=== PATIENT | male | born 1955 | race Caucasian/White ===

== ENCOUNTER 2017-03-09 07:50 | Inpatient (IN) | payer OTHER ==
[~2017-03-09] VITALS: Ht 170.2 cm; Wt 71.0 kg
[2017-03-09 08:15] VITALS: BP 174/78
[2017-03-09] MEDS ORDERED: ALLO300T PO (09:59)
[2017-03-09] MEDS ORDERED: FENO145T2 PO (09:59)
[2017-03-09] MEDS ORDERED: TAMS0.4C97 PO (09:59)
[2017-03-09] MEDS ORDERED: DAPS25TA PO (09:59)
[2017-03-09] MEDS ORDERED: AMLO10TA4 PO (09:59)
[2017-03-09 10:37] VITALS: BP 137/79
[2017-03-09 11:35] LABS: CKMB MASS 0.7 ng/mL (0.0-3.6)
--- NOTE | 2017-03-09 13:05 | HP ---
ADMIT DATE: 03/09/2017 CHIEF COMPLAINT: Chest pain. HISTORY OF PRESENT ILLNESS: The patient is a pleasant middle-aged white male who presented with chest pain. He rates it 12/02. He tried taking some iyga-iic-bvvthep meds, but did not work. It radiates to the left chest wall and into the jaw. He had some slight nausea. I discussed the case with the ER physician. He was transferred here from another facility. The patient is now being transferred from another facility. PAST MEDICAL HISTORY: Hyperlipidemia, hypertension, inguinal hernia repair twice, gout and BPH. ALLERGIES: None. FAMILY HISTORY: Coronary artery disease in both parents. SOCIAL HISTORY: Does not drink, smoke or take drugs. 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 MEDICATIONS: Reviewed, please refer to the MRAD. REVIEW OF SYSTEMS: GENERAL: No history of weight change, weakness or fevers. SKIN: No bruising, hair changes or rashes. EYES: No blurred, double or loss of vision. NOSE AND THROAT: No history of nosebleeds, hoarseness or sore throat. HEART: He complains of chest pain. LUNGS: Denies cough, hemoptysis, wheezing or shortness of breath. GASTROINTESTINAL: Denies changes in appetite, nausea, vomiting, diarrhea or constipation. GENITOURINARY: No history of frequency, urgency, hesitancy or nocturia. NEUROLOGIC: Denies history of numbness, tingling, tremor or weakness. PSYCHIATRIC: No history of panic, anxiety or depression. ENDOCRINE: No history of heat or cold intolerance, polyuria or polydipsia. EXTREMITIES: Denies muscle weakness, joint pain, pain on walking or stiffness. PHYSICAL EXAMINATION: VITAL SIGNS: Temperature afebrile, pulse 92, respirations 18, blood pressure 144/90. GENERAL: He is alert, cooperative. His friend is present. HEART: Normal S1, S2. LUNGS: Clear. ABDOMEN: Soft. EXTREMITIES: No edema. SKIN: No rashes. PSYCHIATRIC: Stable. VASCULAR: Good capillary refill. ENDOCRINE: No thyromegaly. LYMPHATICS: No cervical nodes. HEMATOPOIETIC: No bruising. LABORATORY DATA: CPK is 79. Other labs are pending. ASSESSMENT AND PLAN: Chest pain, rule out coronary disease. The patient is being admitted. We will check serial enzymes, serial EKGs. Consult Cardiology, daily aspirin. Continue home medicines. NIAL Yocasta GA DO DR: Candida JOB#: [id number] / [id number]
[2017-03-09 13:43] LABS: CHOLESTEROL/HDL RATIO 3.5
--- NOTE | 2017-03-09 14:10 | PDOC2 ---
CONSULT Date of Consult Date of Consult DATE: 03/09/17 TIME: 14:06 Reason for Consult Reason for Consult: chest pain Referring Physician Referring Physician: Dr. King Identification/Chief Complaint Chief Complaint Chest pain. Problems: Source Source: Patient History of Present Illness Reason for Visit: The patient is a pleasant 61-year-old male who developed chest discomfort earlier today. He was seen at his local emergency room and then transferred to [place]. At the present time he is resting comfortably in bed. We do not yet have available records. He denies any history of coronary artery disease but does report a history of hypertension and hyperlipidemia. He also reports a family history of coronary disease. Past Medical History Cardiovascular: HTN, Hyperlipidemia Past Surgical History Past Surgical History: Other (inguinal hernia repair) Family History Family History: Coronary Artery Disease Social History ALCOHOL: social Current Medications Current Medications Current Medications Allopurinol (Zyloprim) 300 mg DAILY PO ; Start 03/09/17 at 13:00 Amlodipine Besylate (Norvasc) 10 mg DAILY PO ; Start 03/09/17 at 13:00 Tamsulosin HCl (Flomax) 0.4 mg DAILY PO ; Start 03/09/17 at 13:00 Fenofibrate (Lofibra) 134 mg DAILY PO ; Start 03/09/17 at 13:00 Sodium Chloride 1,000 ml @ 75 mls/hr [id number] IV ; Start 03/09/17 at 12:15 Active Scripts Active Reported Fenofibrate (Fenofibrate Nanocrystallized) 145 Mg Tablet 145 Tab PO DAILY Norvasc (Amlodipine Besylate) 10 Mg Tablet 10 Mg PO DAILY Allopurinol 300 Mg Tablet 1 Tab PO DAILY Dapsone 25 Mg Tablet 25 Mg PO Flomax (Tamsulosin Hcl) 0.4 Mg Cap.er.24h 0.4 Mg PO DAILY Allergies Allergies: Coded Allergies: [place]-O[place]-Fab Reductase Inhibitor (Verified Allergy, Severe, Swelling, 03/09/17) ROS Cardiovascular: yes Chest Pain Physical Exam General: No acute distress HEENT: Atraumatic Lungs: Clear to auscultation Heart: Regular rate Abdomen: Normal bowel sounds Vitals VITALS Vital Signs Date Time Temp Pulse Resp B/P (MAP) Pulse Ox O2 Delivery O2 Flow Rate FiO2 03/09/17 10:37 97.5 57 18 137/79 (98) 93 Room Air 97.5 Labs Labs Laboratory Tests Test 03/09/17 10:00 Creatine Kinase 79 U/L (39-308) Creatine Kinase MB (Mass) 0.7 ng/mL (0.0-3.6) Creatine Kinase MB Relative Index 0.9 % (0-4) Troponin I Quantitative < 0.017 ng/mL (0.000-0.055) Triglycerides Level 104 mg/dL (0-150) Cholesterol Level 189 mg/dL (0-200) LDL Cholesterol, Calculated 114 mg/dL (0-100) VLDL Cholesterol, Calculated 21 mg/dL (0-40) Non-HDL Cholesterol Calculated 135 mg/dL (0-129) HDL Cholesterol 54 mg/dL (40-60) Cholesterol/HDL Ratio 3.5 Laboratory Tests Test 03/09/17 10:00 Creatine Kinase 79 U/L (39-308) Creatine Kinase MB (Mass) 0.7 ng/mL (0.0-3.6) Creatine Kinase MB Relative Index 0.9 % (0-4) Troponin I Quantitative < 0.017 ng/mL (0.000-0.055) Triglycerides Level 104 mg/dL (0-150) Cholesterol Level 189 mg/dL (0-200) LDL Cholesterol, Calculated 114 mg/dL (0-100) VLDL Cholesterol, Calculated 21 mg/dL (0-40) Non-HDL Cholesterol Calculated 135 mg/dL (0-129) HDL Cholesterol 54 mg/dL (40-60) Cholesterol/HDL Ratio 3.5 Assessment/Plan Assessment/Plan 1. Chest pain. Pain largely resolved. Reportedly no acute EKG changes. We do not have an EKG here yet. Initial troponin is normal. Will continue baseline medications including aspirin. We'll rule out for myocardial infarction. Based on clinical course will proceed with treadmill stress testing tomorrow versus cardiac catheterization. 2. Hypertension. Patient's blood pressures under reasonable control. Continue medical treatment. 3. Hyperlipidemia. Patient reports severe leg pain with statins. We'll review lab testing and consider alternative treatments. Thank you for allowing us to participate in the care of your patient. ZENY RAMOS MD Mar 09, 2017 14:10
[2017-03-09 14:35] VITALS: BP 121/73
--- NOTE | 2017-03-09 16:54 | EKG ---
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
[2017-03-09] MEDS: amLODIPine BESYLATE 10 MG TABLET PO SCH (17:46)
[2017-03-09] MEDS: TAMSULOSIN 0.4 MG CAP.ER.24H. PO SCH (17:46)
[2017-03-09] MEDS: ALLOPURINOL 300 MG TABLET. PO SCH (17:46)
[2017-03-09] MEDS: ASPIRIN ENTERIC COATED 325 MG TABLET.DR. PO SCH (17:46)
[2017-03-09] MEDS: FENOFIBRATE,MICRONIZED 134 MG CAPSULE PO SCH (17:46)
[2017-03-09] MEDS: IV NORMAL SALINE 1000ML BAG 1,000 ML IV SCH (17:47)
[2017-03-09 19:25] VITALS: BP 131/78
[2017-03-09 23:00] VITALS: BP 119/75
[2017-03-10] MEDS: IV NORMAL SALINE 1000ML BAG 1,000 ML IV SCH (01:35)
[2017-03-10 03:20] VITALS: BP 108/66
[2017-03-10 05:00] LABS: BASO % 1 % (0-3); EOS % 2 % (0-3); HEMATOCRIT 41.4 % (39.0-53.0); HEMOGLOBIN 14.2 g/dL (13.0-17.5); LYMPH # 0.9 x10^3/uL (1.0-4.8); LYMPH % 16 % (24-48); MEAN CORPUSCULAR HEMOGLOBIN 32 pg (25-35); MEAN CORPUSCULAR HGB CONC 34 g/dL (31-37); MEAN CORPUSCULAR VOLUME 92 fL (79-100); MONO % 9 % (0-9); NEUT % 72 % (31-73); PLATELET COUNT 240 x10^3/uL (140-400); RED CELL DISTRIBUTION WIDTH 13.6 % (11.5-14.5); WHITE BLOOD COUNT 5.5 x10^3/uL (4.0-11.0)
[2017-03-10 05:11] LABS: CALCIUM 8.5 mg/dL (8.5-10.1); GFR 76.5; POTASSIUM 3.6 mmol/L (3.5-5.1)
[2017-03-10 07:00] VITALS: BP 118/70
[2017-03-10 11:00] VITALS: BP 118/72
--- NOTE | 2017-03-10 12:39 | PDOC ---
PROGRESS NOTES Chief Complaint Chief Complaint Chest pain History of Present Illness History of Present Illness Pt was seen at bedside accompanied by friend. States he is feeling much better than the previous few days, and welcomes the idea of discharge as soon as possible. Denies all constitutional symptoms and denies CP at present. Appears well and in NAD. Vitals Vitals Vital Signs Date Time Temp Pulse Resp B/P (MAP) Pulse Ox O2 Delivery O2 Flow Rate FiO2 03/10/17 11:00 98.4 63 18 118/72 (87) 94 Room Air 98.4 03/09/17 19:25 Physical Exam General: Alert, Oriented X3, Cooperative, No acute distress Heart: Regular rate Lungs: Clear Abdomen: Normal bowel sounds Extremities: No edema Skin: No significant lesion Labs LABS Laboratory Tests Test 03/09/17 18:40 03/10/17 03:15 Troponin I Quantitative < 0.017 ng/mL (0.000-0.055) White Blood Count 5.5 x10^3/uL (4.0-11.0) Red Blood Count 4.50 x10^6/uL (4.30-5.70) Hemoglobin 14.2 g/dL (13.0-17.5) Hematocrit 41.4 % (39.0-53.0) Mean Corpuscular Volume 92 fL (79-100) Mean Corpuscular Hemoglobin 32 pg (25-35) Mean Corpuscular Hemoglobin Concent 34 g/dL (31-37) Red Cell Distribution Width 13.6 % (11.5-14.5) Platelet Count 240 x10^3/uL (140-400) Neutrophils (%) (Auto) 72 % (31-73) Lymphocytes (%) (Auto) 16 % (24-48) Monocytes (%) (Auto) 9 % (0-9) Eosinophils (%) (Auto) 2 % (0-3) Basophils (%) (Auto) 1 % (0-3) Neutrophils # (Auto) 3.9 x10^3uL (1.8-7.7) Lymphocytes # (Auto) 0.9 x10^3/uL (1.0-4.8) Monocytes # (Auto) 0.5 x10^3/uL (0.0-1.1) Eosinophils # (Auto) 0.1 x10^3/uL (0.0-0.7) Basophils # (Auto) 0.0 x10^3/uL (0.0-0.2) Sodium Level 141 mmol/L (136-145) Potassium Level 3.6 mmol/L (3.5-5.1) Chloride Level 107 mmol/L (98-107) Carbon Dioxide Level 24 mmol/L (21-32) Anion Gap 10 (6-14) Blood Urea Nitrogen 19 mg/dL (8-26) Creatinine 1.0 mg/dL (0.7-1.3) Estimated GFR (Cockcroft-Gault) 76.5 Glucose Level 97 mg/dL (70-99) Calcium Level 8.5 mg/dL (8.5-10.1) Review of Systems Review of Systems Patient denies CP. Denies SOB, cough, or wheezing. Denies abd. pain or change in bowel fxn. Assessment and Plan Assessmemt and Plan Chest pain Plan: Serial cardiac enzymes Serial EKG's Cardiac monitoring MPI (today) Continue home medications Problems: Comment Review of Relevant I have reviewed the following items biju (where applicable) has been applied. Labs Laboratory Tests Test 03/09/17 10:00 03/09/17 18:40 03/10/17 03:15 Creatine Kinase 79 U/L (39-308) Creatine Kinase MB (Mass) 0.7 ng/mL (0.0-3.6) Creatine Kinase MB Relative Index 0.9 % (0-4) Troponin I Quantitative < 0.017 ng/mL (0.000-0.055) < 0.017 ng/mL (0.000-0.055) Triglycerides Level 104 mg/dL (0-150) Cholesterol Level 189 mg/dL (0-200) LDL Cholesterol, Calculated 114 mg/dL (0-100) VLDL Cholesterol, Calculated 21 mg/dL (0-40) Non-HDL Cholesterol Calculated 135 mg/dL (0-129) HDL Cholesterol 54 mg/dL (40-60) Cholesterol/HDL Ratio 3.5 White Blood Count 5.5 x10^3/uL (4.0-11.0) Red Blood Count 4.50 x10^6/uL (4.30-5.70) Hemoglobin 14.2 g/dL (13.0-17.5) Hematocrit 41.4 % (39.0-53.0) Mean Corpuscular Volume 92 fL (79-100) Mean Corpuscular Hemoglobin 32 pg (25-35) Mean Corpuscular Hemoglobin Concent 34 g/dL (31-37) Red Cell Distribution Width 13.6 % (11.5-14.5) Platelet Count 240 x10^3/uL (140-400) Neutrophils (%) (Auto) 72 % (31-73) Lymphocytes (%) (Auto) 16 % (24-48) Monocytes (%) (Auto) 9 % (0-9) Eosinophils (%) (Auto) 2 % (0-3) Basophils (%) (Auto) 1 % (0-3) Neutrophils # (Auto) 3.9 x10^3uL (1.8-7.7) Lymphocytes # (Auto) 0.9 x10^3/uL (1.0-4.8) Monocytes # (Auto) 0.5 x10^3/uL (0.0-1.1) Eosinophils # (Auto) 0.1 x10^3/uL (0.0-0.7) Basophils # (Auto) 0.0 x10^3/uL (0.0-0.2) Sodium Level 141 mmol/L (136-145) Potassium Level 3.6 mmol/L (3.5-5.1) Chloride Level 107 mmol/L (98-107) Carbon Dioxide Level 24 mmol/L (21-32) Anion Gap 10 (6-14) Blood Urea Nitrogen 19 mg/dL (8-26) Creatinine 1.0 mg/dL (0.7-1.3) Estimated GFR (Cockcroft-Gault) 76.5 Glucose Level 97 mg/dL (70-99) Calcium Level 8.5 mg/dL (8.5-10.1) Laboratory Tests Test 03/09/17 18:40 03/10/17 03:15 Troponin I Quantitative < 0.017 ng/mL (0.000-0.055) White Blood Count 5.5 x10^3/uL (4.0-11.0) Red Blood Count 4.50 x10^6/uL (4.30-5.70) Hemoglobin 14.2 g/dL (13.0-17.5) Hematocrit 41.4 % (39.0-53.0) Mean Corpuscular Volume 92 fL (79-100) Mean Corpuscular Hemoglobin 32 pg (25-35) Mean Corpuscular Hemoglobin Concent 34 g/dL (31-37) Red Cell Distribution Width 13.6 % (11.5-14.5) Platelet Count 240 x10^3/uL (140-400) Neutrophils (%) (Auto) 72 % (31-73) Lymphocytes (%) (Auto) 16 % (24-48) Monocytes (%) (Auto) 9 % (0-9) Eosinophils (%) (Auto) 2 % (0-3) Basophils (%) (Auto) 1 % (0-3) Neutrophils # (Auto) 3.9 x10^3uL (1.8-7.7) Lymphocytes # (Auto) 0.9 x10^3/uL (1.0-4.8) Monocytes # (Auto) 0.5 x10^3/uL (0.0-1.1) Eosinophils # (Auto) 0.1 x10^3/uL (0.0-0.7) Basophils # (Auto) 0.0 x10^3/uL (0.0-0.2) Sodium Level 141 mmol/L (136-145) Potassium Level 3.6 mmol/L (3.5-5.1) Chloride Level 107 mmol/L (98-107) Carbon Dioxide Level 24 mmol/L (21-32) Anion Gap 10 (6-14) Blood Urea Nitrogen 19 mg/dL (8-26) Creatinine 1.0 mg/dL (0.7-1.3) Estimated GFR (Cockcroft-Gault) 76.5 Glucose Level 97 mg/dL (70-99) Calcium Level 8.5 mg/dL (8.5-10.1) Medications Current Medications Allopurinol (Zyloprim) 300 mg DAILY PO Last administered on 03/09/17 17:46; Start 03/09/17 at 13:00 Amlodipine Besylate (Norvasc) 10 mg DAILY PO Last administered on 03/09/17 17 :46; Start 03/09/17 at 13:00 Tamsulosin HCl (Flomax) 0.4 mg DAILY PO Last administered on 03/09/17 17:46; Start 03/09/17 at 13:00 Fenofibrate (Lofibra) 134 mg DAILY PO Last administered on 03/09/17 17:46; Start 03/09/17 at 13:00 Sodium Chloride 1,000 ml @ 75 mls/hr [id number] IV Last administered on 17:47; Start 03/09/17 at 12:15 Aspirin (Ecotrin) 325 mg [id number] PO Last administered on 03/09/17 17:46; Start 03/09/17 at 14:15 Active Scripts Active Reported Fenofibrate (Fenofibrate Nanocrystallized) 145 Mg Tablet 145 Tab PO DAILY Norvasc (Amlodipine Besylate) 10 Mg Tablet 10 Mg PO DAILY Allopurinol 300 Mg Tablet 1 Tab PO DAILY Dapsone 25 Mg Tablet 25 Mg PO Flomax (Tamsulosin Hcl) 0.4 Mg Cap.er.24h 0.4 Mg PO DAILY Vitals/I & O Vital Sign - Last 24 Hours 03/09/17 03/09/17 03/09/17 03/09/17 14:35 17:46 19:25 20:20 Temp 97.8 97.6 97.8 97.6 Pulse 61 67 73 Resp 18 20 B/P (MAP) 121/73 (89) 131/65 131/78 (95) Pulse Ox 99 93 O2 Delivery Room Air Room Air Room Air O2 Flow Rate 03/09/17 03/10/17 03/10/17 03/10/17 23:00 03:20 07:00 08:00 Temp 98.0 97.7 97.9 98.0 97.7 97.9 Pulse 59 60 61 Resp 18 18 18 B/P (MAP) 119/75 (90) 108/66 (80) 118/70 (86) Pulse Ox 94 94 94 O2 Delivery Room Air Room Air Room Air Room Air 03/10/17 03/10/17 03/10/17 08:42 08:42 11:00 Temp 98.4 98.4 Pulse 63 Resp 18 B/P (MAP) 118/72 (87) Pulse Ox 94 O2 Delivery Room Air Room Air Room Air Intake and Output 03/10/17 03/10/17 03/11/17 15:00 23:00 07:00 Intake Total 0 ml Balance 0 ml CASTLE,NIAL K III DO Mar 10, 2017 12:38
[2017-03-10] MEDS: ALLOPURINOL 300 MG TABLET. PO SCH (13:26)
[2017-03-10] MEDS: amLODIPine BESYLATE 10 MG TABLET PO SCH (13:26)
[2017-03-10] MEDS: ASPIRIN ENTERIC COATED 325 MG TABLET.DR. PO SCH (13:27)
[2017-03-10] MEDS: TAMSULOSIN 0.4 MG CAP.ER.24H. PO SCH (13:27)
[2017-03-10] MEDS: FENOFIBRATE,MICRONIZED 134 MG CAPSULE PO SCH (13:27)
--- NOTE | 2017-03-10 13:49 | PDOC ---
CARDIO Progress Notes Date and Time Date of Service 03/10/2017 Time of Evaluation 1340 Subjective Subjective: No Chest Pain, No shortness of breath, No Palpitations Vitals Vitals Vital Signs Date Time Temp Pulse Resp B/P (MAP) Pulse Ox O2 Delivery O2 Flow Rate FiO2 03/10/17 13:26 90 112/61 03/10/17 11:00 98.4 18 94 Room Air 98.4 03/09/17 19:25 Weight Weight [ ] Input and Output Intake and Output Intake and Output 03/11/17 07:00 Intake Total 0 ml Balance 0 ml Intake Oral 0 ml Laboratory Labs Laboratory Tests Test 03/09/17 18:40 03/10/17 03:15 Troponin I Quantitative < 0.017 ng/mL (0.000-0.055) White Blood Count 5.5 x10^3/uL (4.0-11.0) Red Blood Count 4.50 x10^6/uL (4.30-5.70) Hemoglobin 14.2 g/dL (13.0-17.5) Hematocrit 41.4 % (39.0-53.0) Mean Corpuscular Volume 92 fL (79-100) Mean Corpuscular Hemoglobin 32 pg (25-35) Mean Corpuscular Hemoglobin Concent 34 g/dL (31-37) Red Cell Distribution Width 13.6 % (11.5-14.5) Platelet Count 240 x10^3/uL (140-400) Neutrophils (%) (Auto) 72 % (31-73) Lymphocytes (%) (Auto) 16 % (24-48) Monocytes (%) (Auto) 9 % (0-9) Eosinophils (%) (Auto) 2 % (0-3) Basophils (%) (Auto) 1 % (0-3) Neutrophils # (Auto) 3.9 x10^3uL (1.8-7.7) Lymphocytes # (Auto) 0.9 x10^3/uL (1.0-4.8) Monocytes # (Auto) 0.5 x10^3/uL (0.0-1.1) Eosinophils # (Auto) 0.1 x10^3/uL (0.0-0.7) Basophils # (Auto) 0.0 x10^3/uL (0.0-0.2) Sodium Level 141 mmol/L (136-145) Potassium Level 3.6 mmol/L (3.5-5.1) Chloride Level 107 mmol/L (98-107) Carbon Dioxide Level 24 mmol/L (21-32) Anion Gap 10 (6-14) Blood Urea Nitrogen 19 mg/dL (8-26) Creatinine 1.0 mg/dL (0.7-1.3) Estimated GFR (Cockcroft-Gault) 76.5 Glucose Level 97 mg/dL (70-99) Calcium Level 8.5 mg/dL (8.5-10.1) Physical Exam HEENT: Neck Supple W Full Motion Chest: Symmetric LUNGS: Clear to Auscultation Heart: S1S2, RRR (SR) Abdomen: Soft N/T Extremities: No Edema, No Calf Tenderness Neurology: alert, oriented, follow commands Assessment Assessment 1. Chest pain: no further recurrence 2. HTN; controlled 3. HLP; allergic to statin, on fenofibrate 4. Asymptomatic SB: mainly during sleep, vagal induced by sleep. . Recommendations 1. May DC to home if treadmill MPI is unremarkable, 2. Continue with secondary prevention BLANKA CHONG BONDING SUPERVISOR Mar 10, 2017 13:49
--- NOTE | 2017-03-10 15:22 | RAD ---
APPROVED REPORT Test Type: Exercise Stress Nurse/Tech: Hilaria Edwards R.N. Test Indications: Chest pain. Cardiac History: HTN Medications: SEE EMR Medical History: SEE EMR Resting ECG: SR with T abnormalities in anterolateral leads Resting Heart Rate: 67 bpm Resting Blood Pressure: 132/75mmHg Pretest Chest Pain: None Nurse/Tech Notes S1S2, lungs CTA, denied chest pain or SOA. Denied dizziness. Consent: The procedure was explained to the patient in lay terms. Informed consent was witnessed. Franklin eout was entered into [employer]. History and Stress Test performed by Hilaria Edwards R.N. Stress Symptoms Slightly SOA. POST EXERCISE Reason for Termination: Reached target heart rate Target HR: 136 Max HR: 145 bpm 106% of Maximum Predicted HR: 161 bpm Exercise duration: 8:35 min:sec, Stage Exercise capacity: 10.0METs Max Blood Pressure: 182/48mmHg Blood Pressure response to exercise: Normal blood pressure response during stress. Heart Rate response to exercise: Normal Chest Pain: No. Arrhythmia: No. ST Change: No. INTERPRETATION Stress EKG Conclusion: Baseline EKG showed sinus rhythm with inferolateral T wave inversions. No isc hemic changes at peak stress. No arrhythmias. Imaging Protocol IMAGE PROTOCOL: Rest Tc-99m/stress Tc-99m 1 day Rest: Stress: Viability: Radiopharm.Tc99m [id number] Sestamibi Efcm74uFy 32mCi Duration 15min. 12min. Img Date 03/10/2017 03/10/2017 Inj-Img Vmnp48owb. 60min. Rest Admin Site:IV - Left AntecubitalAdministrator:Jorge L Hicks RT (R)(N) Stress Admin Site: IV - Left AntecubitalAdministrator: Serina Archer RT (R)(N) STRESS DATA End Diast. Vol.54.0mlAv. Heart Rate73.0bpm End Syst. Vol.9.0mlCO Index BSA0.0L/min Myocardial Uhxu943.0gEject. Zsammlyy65.0% Stress Rates Pk. Fill Rate2.80EDV/secLVtime Pk. Fill 194.04msec Pk. Empty Rate5.44ESV/secLVtime Pk. Duvhx158.38msec 1/3 Pk. Fill1.34EDV/sec Stress Scores Regional WT0.00Summed WT1.00 Regional WM0.00Summed WM3.00 Study quality was good. Left Ventricular size was Normal at Rest and Stress. Lung uptake was Normal. Left Ventricular ejection fraction is 83%. The rest and stress images show normal perfusion, normal contraction and thickening. LV Perf. Quant 17 Seg. SSS1.00 17 Seg. SRS1.00 17 Seg. SDS0.00 Stress Defect Extent (% LAD)0.00Rest Defect Extent (% LAD)0.00Rev. Defect Extent (% LAD)0.00 Stress Defect Extent (% LCX) 10.00Rest Defect Extent (% LCX)17.50Rev. Defect Extent (% LCX)0.00 Stress Defect Extent (% RCA)0.00Rest Defect Extent (% RCA)0.00Rev. Defect Extent (% RCA)0.00 Stress Defect Extent (% BALA)1.70Rest Defect Extent (% BALA)3.00Rev. Defect Extent (% BALA)0.00 Conclusion 1. Treadmill exercise cardioisotope stress test did not show any evidence of ischemia or infarct. 2. Normal left ventricular systolic function with ejection fraction calculated at 83%. 3. Patient had excellent acitivity tolerance. Low risk for cardiac events.
[2017-03-10 15:50] VITALS: BP 104/64
== END 2017-03-10 16:20 | disposition home or self-care (01) | DRG 313 ==
LOC: 4 NORTH 07:50 → 2 NORTH 08:25
PROVIDERS: ADMIT Internal Medicine; ATTEND Internal Medicine
DX: R07.9 Chest pain, unspecified (principal); E78.5 Hyperlipidemia, unspecified; I10 Essential (primary) hypertension; M10.9 Gout, unspecified; N40.0 Benign prostatic hyperplasia without lower urinary tract symptoms; Z82.49 Family history of ischemic heart disease and other diseases of the circulatory system; Z88.8 Allergy status to other drugs, medicaments and biological substances; R00.1 Bradycardia, unspecified
CPT/HCPCS: 36415; 78452; 80048; 80061; 82553; 84484; 85025; 93005; 93017; 96374; 96376; A9500; J7030

== ENCOUNTER 2019-08-28 11:48 | Inpatient (IN) | payer BC, OTHER ==
[~2019-08-28] VITALS: Ht 170.2 cm; Wt 69.9 kg
[~2019-08-28 11:48] MED LIST: ALLO300T PO; AMLO10TA4 PO; DAPS25TA PO; FENO145T3 PO; TAMS0.4C97 PO
[2019-08-28 12:14] LABS: BASO % 1 % (0-3); EOS # 0.1 x10^3/uL (0.0-0.7); EOS % 1 % (0-3); HEMATOCRIT 44.2 % (39.0-53.0); HEMOGLOBIN 15.2 g/dL (13.0-17.5); LYMPH # 0.9 x10^3/uL (1.0-4.8); LYMPH % 20 % (24-48); MEAN CORPUSCULAR HEMOGLOBIN 33 pg (25-35); MEAN CORPUSCULAR HGB CONC 34 g/dL (31-37); MEAN CORPUSCULAR VOLUME 97 fL (79-100); MONO # 0.3 x10^3/uL (0.0-1.1); MONO % 7 % (0-9); NEUT # 3.3 x10^3/uL (1.8-7.7); NEUT % 71 % (31-73); PLATELET COUNT 258 x10^3/uL (140-400); RED BLOOD COUNT 4.56 x10^6/uL (4.30-5.70); RED CELL DISTRIBUTION WIDTH 13.5 % (11.5-14.5); WHITE BLOOD COUNT 4.6 x10^3/uL (4.0-11.0)
--- NOTE | 2019-08-28 12:25 | RAD ---
EXAM: Chest, single view. HISTORY: Chest pain. COMPARISON: None. FINDINGS: A frontal view of the chest is obtained. There is no infiltrate, pleural effusion or pneumothorax. The heart is normal in size. There is a healed left fourth rib fracture. IMPRESSION: No acute pulmonary finding. Electronically signed by: Serina Churchill MD (08/28/2019 12:22 PM) [facility]
[2019-08-28 12:28] LABS: CALCIUM 9.7 mg/dL (8.5-10.1); CREATININE 1.1 mg/dL (0.7-1.3); GFR 67.8; POTASSIUM 3.7 mmol/L (3.5-5.1)
[2019-08-28 12:30] LABS: ALBUMIN 4.8 g/dL (3.4-5.0); ALBUMIN/GLOBULIN RATIO 1.7 (1.0-1.7); TOTAL BILIRUBIN 0.7 mg/dL (0.2-1.0); TOTAL PROTEIN 7.7 g/dL (6.4-8.2)
--- NOTE | 2019-08-28 12:51 | PHYS DOC ---
Past Medical History Past Medical History: High Cholesterol, Hypertension, Other Additional Past Medical Histor: GOUT, BPH Past Surgical History: Other Additional Past Surgical Histo: HERNIA Smoking Status: Never Smoker Alcohol Use: Heavy Additional Information: 'AT LEAST 3 DRINKS A DAY' Adult General Chief Complaint Chief Complaint: CHEST PAIN HPI HPI Patient is a 64 year old male with history of hypertension dyslipidemia who presents with intermittent daily social chest pain with radiation to left arm 3 months. Symptoms been continuous for the past 24 hours have not been relieved with rest. Reports mild dyspnea, no nausea, vomiting, sweats abdominal pain. Denies leg pain or swelling. No fever, chills, sore throat. No other acute symptoms or complaints. [] Review of Systems Review of Systems ROS as per HPI. All other systems were reviewed and found to be within normal limits, except as documented in this note. Current Medications Current Medications Current Medications Medications (Trade) Dose Ordered Sig/Pedro Pablo Start Time Stop Time Status Last Admin Dose Admin Aspirin (Children'S Aspirin) 243 mg 1X ONCE 08/28/19 13:00 08/28/19 13:01 UNV Nitroglycerin (Nitrostat) 0.4 mg PRN Q5MIN PRN 08/28/19 13:00 UNV Allergies Allergies Allergies Coded Allergies Type Severity Reaction Last Updated Verified Jmkksxg-Kax-Owm Reductase Inhibitor Allergy Severe Swelling 03/09/17 Yes Physical Exam Physical Exam Constitutional: Well developed, well nourished, no acute distress. [] HENT: Normocephalic, atraumatic, bilateral external ears normal, oropharynx moist, nose normal. [] Eyes: PERRLA, EOMI, conjunctiva normal, no discharge. [] Neck: Normal range of motion, no tenderness. [] Cardiovascular:Heart rate regular rhythm, no murmur [] Lungs & Thorax: Bilateral breath sounds clear to auscultation [] Abdomen: Bowel sounds normal, soft. [] Skin: Warm, dry, no erythema, no rash. [] Back: No tenderness. [] Extremities: No tenderness, no edema. [] Neurologic: Alert and oriented X 3, normal motor function, normal sensory function, no focal deficits noted. [] Psychologic: Affect normal, judgement normal, mood normal. [] Current Patient Data Vital Signs Vital Signs Date Time Temp Pulse Resp B/P (MAP) Pulse Ox O2 Delivery O2 Flow Rate FiO2 08/28/19 11:50 98.0 98 16 178/104 (128) 91 Room Air 98.0 Lab Values Laboratory Tests Test 08/28/19 11:59 White Blood Count 4.6 x10^3/uL (4.0-11.0) Red Blood Count 4.56 x10^6/uL (4.30-5.70) Hemoglobin 15.2 g/dL (13.0-17.5) Hematocrit 44.2 % (39.0-53.0) Mean Corpuscular Volume 97 fL (79-100) Mean Corpuscular Hemoglobin 33 pg (25-35) Mean Corpuscular Hemoglobin Concent 34 g/dL (31-37) Red Cell Distribution Width 13.5 % (11.5-14.5) Platelet Count 258 x10^3/uL (140-400) Neutrophils (%) (Auto) 71 % (31-73) Lymphocytes (%) (Auto) 20 % (24-48) L Monocytes (%) (Auto) 7 % (0-9) Eosinophils (%) (Auto) 1 % (0-3) Basophils (%) (Auto) 1 % (0-3) Neutrophils # (Auto) 3.3 x10^3/uL (1.8-7.7) Lymphocytes # (Auto) 0.9 x10^3/uL (1.0-4.8) L Monocytes # (Auto) 0.3 x10^3/uL (0.0-1.1) Eosinophils # (Auto) 0.1 x10^3/uL (0.0-0.7) Basophils # (Auto) 0.0 x10^3/uL (0.0-0.2) Sodium Level 137 mmol/L (136-145) Potassium Level 3.7 mmol/L (3.5-5.1) Chloride Level 101 mmol/L (98-107) Carbon Dioxide Level 25 mmol/L (21-32) Anion Gap 11 (6-14) Blood Urea Nitrogen 20 mg/dL (8-26) Creatinine 1.1 mg/dL (0.7-1.3) Estimated GFR (Cockcroft-Gault) 67.8 BUN/Creatinine Ratio 18 (6-20) Glucose Level 134 mg/dL (70-99) H Calcium Level 9.7 mg/dL (8.5-10.1) Total Bilirubin 0.7 mg/dL (0.2-1.0) Aspartate Amino Transferase (AST) 43 U/L (15-37) H Alanine Aminotransferase (ALT) 91 U/L (16-63) H Alkaline Phosphatase 56 U/L (46-116) Troponin I Quantitative < 0.017 ng/mL (0.000-0.055) LA-Qmp-S-Type Natriuretic Peptide 9 pg/mL (0-124) Total Protein 7.7 g/dL (6.4-8.2) Albumin 4.8 g/dL (3.4-5.0) Albumin/Globulin Ratio 1.7 (1.0-1.7) Laboratory Tests 08/28/19 11:59 Laboratory Tests 08/28/19 11:59 EKG EKG [EKG: reviewed. no acute TAMIKA] Radiology/Procedures Radiology/Procedures [CXR: NAD] Course & Med Decision Making Course & Med Decision Making Pertinent Labs and Imaging studies reviewed. (See chart for details) Chest pain with exertion no longer relieved with rest. EKG, troponin and do not show acute EKG changes. Aspirin, nitroglycerin and Lovenox given. Will admit to the hospitalist service with anticipated cardiology consult. Dragon Disclaimer Dragon Disclaimer This electronic medical record was generated, in whole or in part, using a voice recognition dictation system. Departure Departure Impression: Primary Impression: Acute coronary syndrome Condition: STABLE Referrals: EFE WILLIAM MD (PCP) BARBARA COHEN DO Aug 28, 2019 12:51
[2019-08-28] MEDS ORDERED: NITROGLYCERIN SUBLINGUAL 0.4 MG BOTTLE OF 25. SL PRN (13:00)
[2019-08-28] MEDS ORDERED: ASPIRIN CHEWABLE 81 MG TABLET. PO ONE (13:00)
[2019-08-28] MEDS ORDERED: ONDANSETRON PF 4 MG/2 ML VIAL. IV PRN ×2 (13:15→14:30)
[2019-08-28] MEDS: IV NORMAL SALINE 1000ML BAG 1,000 ML IV SCH ×2 (13:19→23:01)
[2019-08-28] MEDS ORDERED: ALBUTEROL SULFATE 2.5 MG/3 ML NEBU. NEB PRN (14:30)
[2019-08-28] MEDS ORDERED: ACETAMINOPHEN 325 MG TABLET. PO PRN (14:30)
[2019-08-28] MEDS ORDERED: MORPHINE SULFATE 2 MG/ML VIAL. IV PRN (14:30)
[2019-08-28] MEDS ORDERED: guaiFENesin ORAL 200 MG/10 ML LIQUID. PO PRN (14:30)
[2019-08-28] MEDS ORDERED: DOCUSATE SODIUM 100 MG CAPSULE. PO PRN (14:30)
[2019-08-28] MEDS ORDERED: LORazepam 0.5 MG TABLET PO PRN (14:30)
[2019-08-28] MEDS ORDERED: ZOLPIDEM 5 MG TABLET. PO PRN (14:30)
[2019-08-28 15:00] VITALS: BP 148/75
[2019-08-28] MEDS: NITROGLYCERIN OINT 1 GM PACKET. TP SCH ×2 (15:44→17:48)
[2019-08-28] MEDS ORDERED: ASPI81TA50 PO (16:02)
[2019-08-28] MEDS ORDERED: OMEG1CAP2 PO (16:02)
--- NOTE | 2019-08-28 18:09 | PDOC1 ---
History and Physical Date of Admission Date of Admission 08/28/2019 Identification/Chief Complaint Chief Complaint My chest hurts Source Source: Chart review, Patient History of Present Illness History of Present Illness Patient is a 64-year-old gentleman with past medical history of hypertension and dyslipidemia who was in his usual state of health until May when he started experiencing chest discomfort over the precordial area with exercise. Patient refers the pain as a shoulder pressure throbbing initially a 4 out of 10 intensity with radiation down to the arm over the left side that he describes as a tingling as well. The discomfort lasted 5 minutes and there are no associated symptoms like nausea vomiting he does refer some diaphoresis and overall sensation of not wellbeing. The patient describes that the pain is worse with exercise and gets relieved with resting. The discomfort usually last for 5 minutes nevertheless over the last 24 hours he has described symptoms as being constant with no relief. The patient denies sensation of impending doom no palpitations no recent infections no headache no blurred vision no cough sputum production no pleurisy has been reported either. Given his symptoms and his comorbidities we were asked to admit the patient for a cardiac rule out. At the time of my note the patient is in no acute distress he denies chest discomfort and he is resting in bed in no acute distress. He denies paroxysmal nocturnal dyspnea no orthopnea no signs of congestive heart failure is evident. He is able to speak in full sentences and he does not seem to experience increased work of breathing either. He denies any abdominal discomfort no leg edema no other symptoms were reported during my interview. Plan of care has bee n explained detail and all concerns were addressed to the best of my abilities Past Medical History Cardiovascular: HTN, Hyperlipidemia Past Surgical History Past Surgical History: Other Family History Family History: Coronary Artery Disease Social History ALCOHOL: social Current Problem List Problem List Problems Medical Problems: (1) Acute coronary syndrome Status: Acute Current Medications Current Medications Current Medications Medications (Trade) Dose Ordered Sig/Pedro Pablo Start Time Stop Time Status Last Admin Dose Admin Acetaminophen (Tylenol) 650 mg PRN Q4HRS PRN 08/28/19 14:30 Albuterol Sulfate (Ventolin Neb Soln) 2.5 mg PRN Q4HRS PRN 08/28/19 14:30 08/28/19 16:20 2.5 MG Allopurinol (Zyloprim) 300 mg DAILY 08/29/19 09:00 Amlodipine Besylate (Norvasc) 10 mg DAILY 08/29/19 09:00 Aspirin (Children'S Aspirin) 243 mg 1X ONCE 08/28/19 13:00 08/28/19 13:01 DC 08/28/19 13:18 243 MG Docusate Sodium (Colace) 100 mg PRN BID PRN 08/28/19 14:30 Enoxaparin Sodium (Lovenox 80mg Syringe) 70 mg 1X ONCE 08/28/19 13:00 08/28/19 13:01 DC 08/28/19 13:18 70 MG Guaifenesin (Robitussin) 200 mg PRN Q4HRS PRN 08/28/19 14:30 Lorazepam (Ativan) 0.5 mg PRN Q4HRS PRN 08/28/19 14:30 Morphine Sulfate (Morphine Sulfate) 2 mg PRN Q2HR PRN 08/28/19 14:30 Nitroglycerin (Nitro-Bid Oint) 0.5 inch Q6HRS 08/28/19 14:00 08/28/19 17:48 0.5 INCH Nitroglycerin (Nitrostat) 0.4 mg PRN Q5MIN PRN 08/28/19 13:00 Ondansetron HCl (Zofran) 4 mg PRN Q4HRS PRN 08/28/19 14:30 Sodium Chloride 1,000 ml @ 100 mls/hr Q10H 08/28/19 13:01 08/29/19 13:00 08/28/19 13:19 100 MLS/HR Tamsulosin HCl (Flomax) 0.4 mg DAILY 08/29/19 09:00 Zolpidem Tartrate (Ambien) 5 mg PRN QHS PRN 08/28/19 14:30 Allergies Allergies Allergies Coded Allergies Type Severity Reaction Last Updated Verified Fthqcrf-Oxb-Ndi Reductase Inhibitor Allergy Severe Swelling 03/09/17 Yes ROS Review of System CONSTITUTIONAL: No fever or chills EYES: No recent changes SKIN: No rash or itching CARDIOVASCULAR: No chest pain, syncope, palpitations, or edema RESPIRATORY: No SOB or cough GASTROINTESTINAL: No nausea, vomiting or abdominal pain NEUROLOGICAL: No headaches or weakness ENDOCRINE: No cold or heat intolerance GENITOURINARY: No urgency or frequency of urination MUSCULOSKELETAL: No back pain or joint pain LYMPHATICS: No enlarged lymph nodes PSYCHIATRIC: No anxiety or depression Physical Exam Physical Exam GEN.: No apparent distress. Alert and oriented. HEENT: Head is normocephalic, atraumatic NECK: Supple. LUNGS: Clear to auscultation. HEART: RRR, S1, S2 present. Peripheral pulses intact ABDOMEN: Soft, nontender. Positive bowel sounds. EXTREMITIES: Without any cyanosis. NEUROLOGIC: Normal speech, normal tone PSYCHIATRIC: Normal affect, normal mood. SKIN: No ulcerations Vitals Vitals Vital Signs Date Time Temp Pulse Resp B/P (MAP) Pulse Ox O2 Delivery O2 Flow Rate FiO2 08/28/19 17:48 82 158/76 08/28/19 16:20 94 Nasal Cannula 2.5 08/28/19 15:00 98.6 18 98.6 Labs Labs Laboratory Tests Test 08/28/19 11:59 White Blood Count 4.6 x10^3/uL (4.0-11.0) Red Blood Count 4.56 x10^6/uL (4.30-5.70) Hemoglobin 15.2 g/dL (13.0-17.5) Hematocrit 44.2 % (39.0-53.0) Mean Corpuscular Volume 97 fL (79-100) Mean Corpuscular Hemoglobin 33 pg (25-35) Mean Corpuscular Hemoglobin Concent 34 g/dL (31-37) Red Cell Distribution Width 13.5 % (11.5-14.5) Platelet Count 258 x10^3/uL (140-400) Neutrophils (%) (Auto) 71 % (31-73) Lymphocytes (%) (Auto) 20 % (24-48) Monocytes (%) (Auto) 7 % (0-9) Eosinophils (%) (Auto) 1 % (0-3) Basophils (%) (Auto) 1 % (0-3) Neutrophils # (Auto) 3.3 x10^3/uL (1.8-7.7) Lymphocytes # (Auto) 0.9 x10^3/uL (1.0-4.8) Monocytes # (Auto) 0.3 x10^3/uL (0.0-1.1) Eosinophils # (Auto) 0.1 x10^3/uL (0.0-0.7) Basophils # (Auto) 0.0 x10^3/uL (0.0-0.2) Sodium Level 137 mmol/L (136-145) Potassium Level 3.7 mmol/L (3.5-5.1) Chloride Level 101 mmol/L (98-107) Carbon Dioxide Level 25 mmol/L (21-32) Anion Gap 11 (6-14) Blood Urea Nitrogen 20 mg/dL (8-26) Creatinine 1.1 mg/dL (0.7-1.3) Estimated GFR (Cockcroft-Gault) 67.8 BUN/Creatinine Ratio 18 (6-20) Glucose Level 134 mg/dL (70-99) Calcium Level 9.7 mg/dL (8.5-10.1) Total Bilirubin 0.7 mg/dL (0.2-1.0) Aspartate Amino Transf (AST/SGOT) 43 U/L (15-37) Alanine Aminotransferase (ALT/SGPT) 91 U/L (16-63) Alkaline Phosphatase 56 U/L (46-116) Troponin I Quantitative < 0.017 ng/mL (0.000-0.055) CC-Hpe-D-Type Natriuretic Peptide 9 pg/mL (0-124) Total Protein 7.7 g/dL (6.4-8.2) Albumin 4.8 g/dL (3.4-5.0) Albumin/Globulin Ratio 1.7 (1.0-1.7) Laboratory Tests Test 08/28/19 11:59 White Blood Count 4.6 x10^3/uL (4.0-11.0) Red Blood Count 4.56 x10^6/uL (4.30-5.70) Hemoglobin 15.2 g/dL (13.0-17.5) Hematocrit 44.2 % (39.0-53.0) Mean Corpuscular Volume 97 fL (79-100) Mean Corpuscular Hemoglobin 33 pg (25-35) Mean Corpuscular Hemoglobin Concent 34 g/dL (31-37) Red Cell Distribution Width 13.5 % (11.5-14.5) Platelet Count 258 x10^3/uL (140-400) Neutrophils (%) (Auto) 71 % (31-73) Lymphocytes (%) (Auto) 20 % (24-48) Monocytes (%) (Auto) 7 % (0-9) Eosinophils (%) (Auto) 1 % (0-3) Basophils (%) (Auto) 1 % (0-3) Neutrophils # (Auto) 3.3 x10^3/uL (1.8-7.7) Lymphocytes # (Auto) 0.9 x10^3/uL (1.0-4.8) Monocytes # (Auto) 0.3 x10^3/uL (0.0-1.1) Eosinophils # (Auto) 0.1 x10^3/uL (0.0-0.7) Basophils # (Auto) 0.0 x10^3/uL (0.0-0.2) Sodium Level 137 mmol/L (136-145) Potassium Level 3.7 mmol/L (3.5-5.1) Chloride Level 101 mmol/L (98-107) Carbon Dioxide Level 25 mmol/L (21-32) Anion Gap 11 (6-14) Blood Urea Nitrogen 20 mg/dL (8-26) Creatinine 1.1 mg/dL (0.7-1.3) Estimated GFR (Cockcroft-Gault) 67.8 BUN/Creatinine Ratio 18 (6-20) Glucose Level 134 mg/dL (70-99) Calcium Level 9.7 mg/dL (8.5-10.1) Total Bilirubin 0.7 mg/dL (0.2-1.0) Aspartate Amino Transf (AST/SGOT) 43 U/L (15-37) Alanine Aminotransferase (ALT/SGPT) 91 U/L (16-63) Alkaline Phosphatase 56 U/L (46-116) Troponin I Quantitative < 0.017 ng/mL (0.000-0.055) SZ-Biw-J-Type Natriuretic Peptide 9 pg/mL (0-124) Total Protein 7.7 g/dL (6.4-8.2) Albumin 4.8 g/dL (3.4-5.0) Albumin/Globulin Ratio 1.7 (1.0-1.7) VTE Prophylaxis Ordered VTE Prophylaxis Devices: No VTE Pharmacological Prophylaxi: Yes Assessment/Plan Assessment/Plan Chest discomfort with a very good history compatible with angina, initial work- up with negative findings Essential hypertension fairly controlled History of dyslipidemia Mild transaminitis we will request laboratory data in the a.m. Plan Request cardiology consultation Trend troponins Follow telemetry Resume home medications Further recommendations based on the clinical course DVT prophylaxis with Lovenox NANDO ARANA MD Aug 28, 2019 18:09
[2019-08-28 19:03] VITALS: BP 139/80
--- NOTE | 2019-08-28 20:01 | EKG ---
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
[2019-08-28 22:01] VITALS: BP 134/72
[2019-08-29 02:18] VITALS: BP 107/72
[2019-08-29] MEDS: NITROGLYCERIN OINT 1 GM PACKET. TP SCH ×5 (06:00→23:29)
[2019-08-29 06:09] LABS: CALCIUM 8.9 mg/dL (8.5-10.1); CREATININE 1.1 mg/dL (0.7-1.3); GFR 67.8; POTASSIUM 3.6 mmol/L (3.5-5.1)
[2019-08-29 06:23] LABS: BASO % 1 % (0-3); EOS # 0.1 x10^3/uL (0.0-0.7); EOS % 2 % (0-3); HEMATOCRIT 39.8 % (39.0-53.0); HEMOGLOBIN 13.5 g/dL (13.0-17.5); LYMPH # 0.8 x10^3/uL (1.0-4.8); LYMPH % 17 % (24-48); MEAN CORPUSCULAR HEMOGLOBIN 33 pg (25-35); MEAN CORPUSCULAR HGB CONC 34 g/dL (31-37); MEAN CORPUSCULAR VOLUME 98 fL (79-100); MONO # 0.4 x10^3/uL (0.0-1.1); MONO % 9 % (0-9); NEUT # 3.6 x10^3/uL (1.8-7.7); NEUT % 72 % (31-73); PLATELET COUNT 251 x10^3/uL (140-400); RED BLOOD COUNT 4.05 x10^6/uL (4.30-5.70); RED CELL DISTRIBUTION WIDTH 13.6 % (11.5-14.5)
[2019-08-29 07:00] VITALS: BP 124/68
[2019-08-29] MEDS: IV NORMAL SALINE 1000ML BAG 1,000 ML IV SCH (07:41)
[2019-08-29] MEDS: amLODIPine BESYLATE 10 MG TABLET PO SCH (08:17)
[2019-08-29] MEDS: TAMSULOSIN 0.4 MG CAP.ER.24H. PO SCH (08:17)
[2019-08-29] MEDS: ALLOPURINOL 300 MG TABLET. PO SCH (08:18)
--- NOTE | 2019-08-29 09:20 | PDOC2 ---
CONSULT Date of Consult Date of Consult DATE: 08/29/19 TIME: 09:16 Reason for Consult Reason for Consult: Chest pain Referring Physician Referring Physician: Dr. Garcia Identification/Chief Complaint Chief Complaint Chest pain Source Source: Chart review, Patient History of Present Illness Reason for Visit: 64-year-old male with history of hypertension and hyperlipidemia presented complaining of left-sided chest pain that he described as pressure-like sensation radiating to left shoulder associated with numbness in the left arm. His pain was relieved with nitroglycerin in ED. He also stated that he has been having similar chest pain while exercising on treadmill since May. This usually subsides after he stops exercising. He denied any orthopnea/PND, palpitations or syncope. He is a nonsmoker and has family history of premature coronary artery disease. Past Medical History Cardiovascular: HTN, Hyperlipidemia Past Surgical History Past Surgical History: Other Family History Family History: Coronary Artery Disease Social History ALCOHOL: social Current Problem List Problem List Problems Medical Problems: (1) Acute coronary syndrome Status: Acute Current Medications Current Medications Current Medications Aspirin (Children'S Aspirin) 243 mg 1X ONCE PO Last administered on 08/28/19at 13:18; Start 08/28/19 at 13:00; Stop 08/28/19 at 13:01; Status DC Nitroglycerin (Nitrostat) 0.4 mg PRN Q5MIN PRN SL CHEST PAIN; Start 08/28/19 at 13:00 Enoxaparin Sodium (Lovenox 80mg Syringe) 70 mg 1X ONCE SQ Last administered on 08/28/19at 13:18; Start 08/28/19 at 13:00; Stop 08/28/19 at 13:01; Status DC Ondansetron HCl (Zofran) 4 mg PRN Q8HRS PRN IV NAUSEA/VOMITING; Start 08/28/19 at 13:15; Stop 08/29/19 at 13:14 Sodium Chloride 1,000 ml @ 100 mls/hr Q10H IV Last administered on 08/28/19at 1 3:19; Start 08/28/19 at 13:01; Stop 08/29/19 at 13:00 Nitroglycerin (Nitro-Bid Oint) 0.5 inch Q6HRS TP Last administered on 08/28/19at 17:48; Start 08/28/19 at 14:00 Allopurinol (Zyloprim) 300 mg DAILY PO Last administered on 08/29/19at 08:18; Start 08/29/19 at 09:00 Amlodipine Besylate (Norvasc) 10 mg DAILY PO Last administered on 08/29/19at 08:17; Start 08/29/19 at 09:00 Tamsulosin HCl (Flomax) 0.4 mg DAILY PO Last administered on 08/29/19at 08:17; Start 08/29/19 at 09:00 Morphine Sulfate (Morphine Sulfate) 2 mg PRN Q2HR PRN IV MODERATE TO SEVERE PAIN; Start 08/28/19 at 14:30 Ondansetron HCl (Zofran) 4 mg PRN Q4HRS PRN IV NAUSEA/VOMITING; Start 08/28/19 at 14:30 Zolpidem Tartrate (Ambien) 5 mg PRN QHS PRN PO INSOMNIA; Start 08/28/19 at 14:30 Acetaminophen (Tylenol) 650 mg PRN Q4HRS PRN PO TEMP OVER 100.4F OR MILD PAIN; Start 08/28/19 at 14:30 Docusate Sodium (Colace) 100 mg PRN BID PRN PO CONSTIPATION; Start 08/28/19 at 14:30 Albuterol Sulfate (Ventolin Neb Soln) 2.5 mg PRN Q4HRS PRN NEB SHORTNESS OF BREATH Last administered on 08/28/19at 16:20; Start 08/28/19 at 14:30 Guaifenesin (Robitussin) 200 mg PRN Q4HRS PRN PO COUGH; Start 08/28/19 at 14:30 Lorazepam (Ativan) 0.5 mg PRN Q4HRS PRN PO ANXIETY / AGITATION; Start 08/28/19 at 14:30 Active Scripts Active Reported Lovaza ([place]-3 Acid Ethyl Esters) 1 Gm Capsule 2 Gm PO BID Aspir-Low (Aspirin) 81 Mg Tablet. 1 Tab PO DAILY Fenofibrate (Fenofibrate Nanocrystallized) 145 Mg Tablet 145 Tab PO DAILY Norvasc (Amlodipine Besylate) 10 Mg Tablet 10 Mg PO DAILY Allopurinol 300 Mg Tablet 1 Tab PO DAILY Dapsone 25 Mg Tablet 25 Mg PO Flomax (Tamsulosin Hcl) 0.4 Mg Cap.er.24h 0.4 Mg PO DAILY Allergies Allergies: Coded Allergies: Dyawkyj-Zjr-Fma Reductase Inhibitor (Verified Allergy, Severe, Swelling, 03/09/17) ROS PSYCHOLOGICAL ROS: No: Hallucinations Eyes: No Loss of vision HEENT: No: Epistaxis ENDOCRINE: No: Palpitations Respiratory: No: Hemoptysis, Shortness of breath Cardiovascular: yes Chest Pain Gastrointestinal: No Vomiting, No Diarrhea Genitourinary: No Hematuria Neurological: No Seizures Skin: No Rash Physical Exam General: Alert, Oriented X3 HEENT: Atraumatic, PERRLA Lungs: Clear to auscultation Heart: Regular rate Abdomen: Soft Extremities: No edema Psych/Mental Status: Mood NL Vitals VITALS Vital Signs Date Time Temp Pulse Resp B/P (MAP) Pulse Ox O2 Delivery O2 Flow Rate FiO2 08/29/19 08:17 65 124/68 08/29/19 07:00 97.6 19 93 Nasal Cannula 2.0 97.6 Labs Labs Laboratory Tests Test 08/28/19 11:59 08/28/19 19:00 08/29/19 04:12 White Blood Count 4.6 x10^3/uL (4.0-11.0) 5.0 x10^3/uL (4.0-11.0) Red Blood Count 4.56 x10^6/uL (4.30-5.70) 4.05 x10^6/uL (4.30-5.70) Hemoglobin 15.2 g/dL (13.0-17.5) 13.5 g/dL (13.0-17.5) Hematocrit 44.2 % (39.0-53.0) 39.8 % (39.0-53.0) Mean Corpuscular Volume 97 fL (79-100) 98 fL (79-100) Mean Corpuscular Hemoglobin 33 pg (25-35) 33 pg (25-35) Mean Corpuscular Hemoglobin Concent 34 g/dL (31-37) 34 g/dL (31-37) Red Cell Distribution Width 13.5 % (11.5-14.5) 13.6 % (11.5-14.5) Platelet Count 258 x10^3/uL (140-400) 251 x10^3/uL (140-400) Neutrophils (%) (Auto) 71 % (31-73) 72 % (31-73) Lymphocytes (%) (Auto) 20 % (24-48) 17 % (24-48) Monocytes (%) (Auto) 7 % (0-9) 9 % (0-9) Eosinophils (%) (Auto) 1 % (0-3) 2 % (0-3) Basophils (%) (Auto) 1 % (0-3) 1 % (0-3) Neutrophils # (Auto) 3.3 x10^3/uL (1.8-7.7) 3.6 x10^3/uL (1.8-7.7) Lymphocytes # (Auto) 0.9 x10^3/uL (1.0-4.8) 0.8 x10^3/uL (1.0-4.8) Monocytes # (Auto) 0.3 x10^3/uL (0.0-1.1) 0.4 x10^3/uL (0.0-1.1) Eosinophils # (Auto) 0.1 x10^3/uL (0.0-0.7) 0.1 x10^3/uL (0.0-0.7) Basophils # (Auto) 0.0 x10^3/uL (0.0-0.2) 0.0 x10^3/uL (0.0-0.2) Sodium Level 137 mmol/L (136-145) 140 mmol/L (136-145) Potassium Level 3.7 mmol/L (3.5-5.1) 3.6 mmol/L (3.5-5.1) Chloride Level 101 mmol/L (98-107) 103 mmol/L (98-107) Carbon Dioxide Level 25 mmol/L (21-32) 26 mmol/L (21-32) Anion Gap 11 (6-14) 11 (6-14) Blood Urea Nitrogen 20 mg/dL (8-26) 18 mg/dL (8-26) Creatinine 1.1 mg/dL (0.7-1.3) 1.1 mg/dL (0.7-1.3) Estimated GFR (Cockcroft-Gault) 67.8 67.8 BUN/Creatinine Ratio 18 (6-20) Glucose Level 134 mg/dL (70-99) 102 mg/dL (70-99) Calcium Level 9.7 mg/dL (8.5-10.1) 8.9 mg/dL (8.5-10.1) Total Bilirubin 0.7 mg/dL (0.2-1.0) Aspartate Amino Transf (AST/SGOT) 43 U/L (15-37) Alanine Aminotransferase (ALT/SGPT) 91 U/L (16-63) Alkaline Phosphatase 56 U/L (46-116) Troponin I Quantitative < 0.017 ng/mL (0.000-0.055) < 0.017 ng/mL (0.000-0.055) HL-Ylp-H-Type Natriuretic Peptide 9 pg/mL (0-124) Total Protein 7.7 g/dL (6.4-8.2) Albumin 4.8 g/dL (3.4-5.0) Albumin/Globulin Ratio 1.7 (1.0-1.7) Laboratory Tests Test 08/28/19 11:59 08/28/19 19:00 08/29/19 04:12 White Blood Count 4.6 x10^3/uL (4.0-11.0) 5.0 x10^3/uL (4.0-11.0) Red Blood Count 4.56 x10^6/uL (4.30-5.70) 4.05 x10^6/uL (4.30-5.70) Hemoglobin 15.2 g/dL (13.0-17.5) 13.5 g/dL (13.0-17.5) Hematocrit 44.2 % (39.0-53.0) 39.8 % (39.0-53.0) Mean Corpuscular Volume 97 fL (79-100) 98 fL (79-100) Mean Corpuscular Hemoglobin 33 pg (25-35) 33 pg (25-35) Mean Corpuscular Hemoglobin Concent 34 g/dL (31-37) 34 g/dL (31-37) Red Cell Distribution Width 13.5 % (11.5-14.5) 13.6 % (11.5-14.5) Platelet Count 258 x10^3/uL (140-400) 251 x10^3/uL (140-400) Neutrophils (%) (Auto) 71 % (31-73) 72 % (31-73) Lymphocytes (%) (Auto) 20 % (24-48) 17 % (24-48) Monocytes (%) (Auto) 7 % (0-9) 9 % (0-9) Eosinophils (%) (Auto) 1 % (0-3) 2 % (0-3) Basophils (%) (Auto) 1 % (0-3) 1 % (0-3) Neutrophils # (Auto) 3.3 x10^3/uL (1.8-7.7) 3.6 x10^3/uL (1.8-7.7) Lymphocytes # (Auto) 0.9 x10^3/uL (1.0-4.8) 0.8 x10^3/uL (1.0-4.8) Monocytes # (Auto) 0.3 x10^3/uL (0.0-1.1) 0.4 x10^3/uL (0.0-1.1) Eosinophils # (Auto) 0.1 x10^3/uL (0.0-0.7) 0.1 x10^3/uL (0.0-0.7) Basophils # (Auto) 0.0 x10^3/uL (0.0-0.2) 0.0 x10^3/uL (0.0-0.2) Sodium Level 137 mmol/L (136-145) 140 mmol/L (136-145) Potassium Level 3.7 mmol/L (3.5-5.1) 3.6 mmol/L (3.5-5.1) Chloride Level 101 mmol/L (98-107) 103 mmol/L (98-107) Carbon Dioxide Level 25 mmol/L (21-32) 26 mmol/L (21-32) Anion Gap 11 (6-14) 11 (6-14) Blood Urea Nitrogen 20 mg/dL (8-26) 18 mg/dL (8-26) Creatinine 1.1 mg/dL (0.7-1.3) 1.1 mg/dL (0.7-1.3) Estimated GFR (Cockcroft-Gault) 67.8 67.8 BUN/Creatinine Ratio 18 (6-20) Glucose Level 134 mg/dL (70-99) 102 mg/dL (70-99) Calcium Level 9.7 mg/dL (8.5-10.1) 8.9 mg/dL (8.5-10.1) Total Bilirubin 0.7 mg/dL (0.2-1.0) Aspartate Amino Transf (AST/SGOT) 43 U/L (15-37) Alanine Aminotransferase (ALT/SGPT) 91 U/L (16-63) Alkaline Phosphatase 56 U/L (46-116) Troponin I Quantitative < 0.017 ng/mL (0.000-0.055) < 0.017 ng/mL (0.000-0.055) BK-Sfv-C-Type Natriuretic Peptide 9 pg/mL (0-124) Total Protein 7.7 g/dL (6.4-8.2) Albumin 4.8 g/dL (3.4-5.0) Albumin/Globulin Ratio 1.7 (1.0-1.7) Assessment/Plan Assessment/Plan 1. Chest pain with typical features concerning for unstable angina. Myocardial infarction has been ruled out. Plan for cardiac catheterization for definitive evaluation and possible angioplasty tomorrow. Risks and benefits were explained and he is agreeable. 2. Hypertension: Controlled 3. Dyslipidemia: Patient has statin allergy, being treated with fenofibrate and Lovaza Thank you for your consultation BRAYAN MASSEY MD Aug 29, 2019 09:20
[2019-08-29 11:00] VITALS: BP 120/70
[2019-08-29 15:00] VITALS: BP 122/70
--- NOTE | 2019-08-29 15:54 | PDOC ---
PROGRESS NOTES Chief Complaint Chief Complaint Chest discomfort with a very good history compatible with unstable angina, initial work-up negative Essential hypertension fairly controlled History of dyslipidemia Mild transaminitis we will request laboratory data in the a.m. Plan cath in am Follow telemetry Resume home medications Further recommendations based on the clinical course DVT prophylaxis with Lovenox History of Present Illness History of Present Illness No acute events reported overnight, case discussed with nursing staff patient in no acute distress no complaints during my visit Vitals Vitals Vital Signs Date Time Temp Pulse Resp B/P (MAP) Pulse Ox O2 Delivery O2 Flow Rate FiO2 08/29/19 15:00 97.7 74 19 122/70 (87) 93 Nasal Cannula 2.0 97.7 Physical Exam General: Alert, Oriented X3 Heart: Regular rate Lungs: Clear Abdomen: Soft Extremities: No edema Labs LABS Laboratory Tests Test 08/28/19 19:00 08/29/19 04:12 Troponin I Quantitative < 0.017 ng/mL (0.000-0.055) White Blood Count 5.0 x10^3/uL (4.0-11.0) Red Blood Count 4.05 x10^6/uL (4.30-5.70) Hemoglobin 13.5 g/dL (13.0-17.5) Hematocrit 39.8 % (39.0-53.0) Mean Corpuscular Volume 98 fL (79-100) Mean Corpuscular Hemoglobin 33 pg (25-35) Mean Corpuscular Hemoglobin Concent 34 g/dL (31-37) Red Cell Distribution Width 13.6 % (11.5-14.5) Platelet Count 251 x10^3/uL (140-400) Neutrophils (%) (Auto) 72 % (31-73) Lymphocytes (%) (Auto) 17 % (24-48) Monocytes (%) (Auto) 9 % (0-9) Eosinophils (%) (Auto) 2 % (0-3) Basophils (%) (Auto) 1 % (0-3) Neutrophils # (Auto) 3.6 x10^3/uL (1.8-7.7) Lymphocytes # (Auto) 0.8 x10^3/uL (1.0-4.8) Monocytes # (Auto) 0.4 x10^3/uL (0.0-1.1) Eosinophils # (Auto) 0.1 x10^3/uL (0.0-0.7) Basophils # (Auto) 0.0 x10^3/uL (0.0-0.2) Sodium Level 140 mmol/L (136-145) Potassium Level 3.6 mmol/L (3.5-5.1) Chloride Level 103 mmol/L (98-107) Carbon Dioxide Level 26 mmol/L (21-32) Anion Gap 11 (6-14) Blood Urea Nitrogen 18 mg/dL (8-26) Creatinine 1.1 mg/dL (0.7-1.3) Estimated GFR (Cockcroft-Gault) 67.8 Glucose Level 102 mg/dL (70-99) Calcium Level 8.9 mg/dL (8.5-10.1) Assessment and Plan Assessmemt and Plan Problems Medical Problems: (1) Acute coronary syndrome Status: Acute Comment Review of Relevant I have reviewed the following items biju (where applicable) has been applied. Labs Laboratory Tests Test 08/28/19 11:59 08/28/19 19:00 08/29/19 04:12 White Blood Count 4.6 x10^3/uL (4.0-11.0) 5.0 x10^3/uL (4.0-11.0) Red Blood Count 4.56 x10^6/uL (4.30-5.70) 4.05 x10^6/uL (4.30-5.70) Hemoglobin 15.2 g/dL (13.0-17.5) 13.5 g/dL (13.0-17.5) Hematocrit 44.2 % (39.0-53.0) 39.8 % (39.0-53.0) Mean Corpuscular Volume 97 fL (79-100) 98 fL (79-100) Mean Corpuscular Hemoglobin 33 pg (25-35) 33 pg (25-35) Mean Corpuscular Hemoglobin Concent 34 g/dL (31-37) 34 g/dL (31-37) Red Cell Distribution Width 13.5 % (11.5-14.5) 13.6 % (11.5-14.5) Platelet Count 258 x10^3/uL (140-400) 251 x10^3/uL (140-400) Neutrophils (%) (Auto) 71 % (31-73) 72 % (31-73) Lymphocytes (%) (Auto) 20 % (24-48) 17 % (24-48) Monocytes (%) (Auto) 7 % (0-9) 9 % (0-9) Eosinophils (%) (Auto) 1 % (0-3) 2 % (0-3) Basophils (%) (Auto) 1 % (0-3) 1 % (0-3) Neutrophils # (Auto) 3.3 x10^3/uL (1.8-7.7) 3.6 x10^3/uL (1.8-7.7) Lymphocytes # (Auto) 0.9 x10^3/uL (1.0-4.8) 0.8 x10^3/uL (1.0-4.8) Monocytes # (Auto) 0.3 x10^3/uL (0.0-1.1) 0.4 x10^3/uL (0.0-1.1) Eosinophils # (Auto) 0.1 x10^3/uL (0.0-0.7) 0.1 x10^3/uL (0.0-0.7) Basophils # (Auto) 0.0 x10^3/uL (0.0-0.2) 0.0 x10^3/uL (0.0-0.2) Sodium Level 137 mmol/L (136-145) 140 mmol/L (136-145) Potassium Level 3.7 mmol/L (3.5-5.1) 3.6 mmol/L (3.5-5.1) Chloride Level 101 mmol/L (98-107) 103 mmol/L (98-107) Carbon Dioxide Level 25 mmol/L (21-32) 26 mmol/L (21-32) Anion Gap 11 (6-14) 11 (6-14) Blood Urea Nitrogen 20 mg/dL (8-26) 18 mg/dL (8-26) Creatinine 1.1 mg/dL (0.7-1.3) 1.1 mg/dL (0.7-1.3) Estimated GFR (Cockcroft-Gault) 67.8 67.8 BUN/Creatinine Ratio 18 (6-20) Glucose Level 134 mg/dL (70-99) 102 mg/dL (70-99) Calcium Level 9.7 mg/dL (8.5-10.1) 8.9 mg/dL (8.5-10.1) Total Bilirubin 0.7 mg/dL (0.2-1.0) Aspartate Amino Transf (AST/SGOT) 43 U/L (15-37) Alanine Aminotransferase (ALT/SGPT) 91 U/L (16-63) Alkaline Phosphatase 56 U/L (46-116) Troponin I Quantitative < 0.017 ng/mL (0.000-0.055) < 0.017 ng/mL (0.000-0.055) SV-Xom-F-Type Natriuretic Peptide 9 pg/mL (0-124) Total Protein 7.7 g/dL (6.4-8.2) Albumin 4.8 g/dL (3.4-5.0) Albumin/Globulin Ratio 1.7 (1.0-1.7) Laboratory Tests Test 08/28/19 19:00 08/29/19 04:12 Troponin I Quantitative < 0.017 ng/mL (0.000-0.055) White Blood Count 5.0 x10^3/uL (4.0-11.0) Red Blood Count 4.05 x10^6/uL (4.30-5.70) Hemoglobin 13.5 g/dL (13.0-17.5) Hematocrit 39.8 % (39.0-53.0) Mean Corpuscular Volume 98 fL (79-100) Mean Corpuscular Hemoglobin 33 pg (25-35) Mean Corpuscular Hemoglobin Concent 34 g/dL (31-37) Red Cell Distribution Width 13.6 % (11.5-14.5) Platelet Count 251 x10^3/uL (140-400) Neutrophils (%) (Auto) 72 % (31-73) Lymphocytes (%) (Auto) 17 % (24-48) Monocytes (%) (Auto) 9 % (0-9) Eosinophils (%) (Auto) 2 % (0-3) Basophils (%) (Auto) 1 % (0-3) Neutrophils # (Auto) 3.6 x10^3/uL (1.8-7.7) Lymphocytes # (Auto) 0.8 x10^3/uL (1.0-4.8) Monocytes # (Auto) 0.4 x10^3/uL (0.0-1.1) Eosinophils # (Auto) 0.1 x10^3/uL (0.0-0.7) Basophils # (Auto) 0.0 x10^3/uL (0.0-0.2) Sodium Level 140 mmol/L (136-145) Potassium Level 3.6 mmol/L (3.5-5.1) Chloride Level 103 mmol/L (98-107) Carbon Dioxide Level 26 mmol/L (21-32) Anion Gap 11 (6-14) Blood Urea Nitrogen 18 mg/dL (8-26) Creatinine 1.1 mg/dL (0.7-1.3) Estimated GFR (Cockcroft-Gault) 67.8 Glucose Level 102 mg/dL (70-99) Calcium Level 8.9 mg/dL (8.5-10.1) Medications Current Medications Aspirin (Children'S Aspirin) 243 mg 1X ONCE PO Last administered on 08/28/19at 13:18; Start 08/28/19 at 13:00; Stop 08/28/19 at 13:01; Status DC Nitroglycerin (Nitrostat) 0.4 mg PRN Q5MIN PRN SL CHEST PAIN; Start 08/28/19 at 13:00 Enoxaparin Sodium (Lovenox 80mg Syringe) 70 mg 1X ONCE SQ Last administered on 08/28/19at 13:18; Start 08/28/19 at 13:00; Stop 08/28/19 at 13:01; Status DC Ondansetron HCl (Zofran) 4 mg PRN Q8HRS PRN IV NAUSEA/VOMITING; Start 08/28/19 at 13:15; Stop 08/29/19 at 13:14; Status Cancel Sodium Chloride 1,000 ml @ 100 mls/hr Q10H IV Last administered on 08/28/19at 13:19; Start 08/28/19 at 13:01; Stop 08/29/19 at 13:00; Status DC Nitroglycerin (Nitro-Bid Oint) 0.5 inch Q6HRS TP Last administered on 08/29/19at 12:30; Start 08/28/19 at 14:00 Allopurinol (Zyloprim) 300 mg DAILY PO Last administered on 08/29/19at 08:18; Start 08/29/19 at 09:00 Amlodipine Besylate (Norvasc) 10 mg DAILY PO Last administered on 08/29/19at 08:17; Start 08/29/19 at 09:00 Tamsulosin HCl (Flomax) 0.4 mg DAILY PO Last administered on 08/29/19at 08:17; Start 08/29/19 at 09:00 Morphine Sulfate (Morphine Sulfate) 2 mg PRN Q2HR PRN IV MODERATE TO SEVERE PAIN; Start 08/28/19 at 14:30 Ondansetron HCl (Zofran) 4 mg PRN Q4HRS PRN IV NAUSEA/VOMITING; Start 08/28/19 at 14:30 Zolpidem Tartrate (Ambien) 5 mg PRN QHS PRN PO INSOMNIA; Start 08/28/19 at 14:30 Acetaminophen (Tylenol) 650 mg PRN Q4HRS PRN PO TEMP OVER 100.4F OR MILD PAIN; Start 08/28/19 at 14:30 Docusate Sodium (Colace) 100 mg PRN BID PRN PO CONSTIPATION; Start 08/28/19 at 14:30 Albuterol Sulfate (Ventolin Neb Soln) 2.5 mg PRN Q4HRS PRN NEB SHORTNESS OF BREATH Last administered on 08/28/19at 16:20; Start 08/28/19 at 14:30 Guaifenesin (Robitussin) 200 mg PRN Q4HRS PRN PO COUGH; Start 08/28/19 at 14:30 Lorazepam (Ativan) 0.5 mg PRN Q4HRS PRN PO ANXIETY / AGITATION; Start 08/28/19 at 14:30 Active Scripts Active Reported Lovaza ([place]-3 Acid Ethyl Esters) 1 Gm Capsule 2 Gm PO BID Aspir-Low (Aspirin) 81 Mg Tablet.dr 1 Tab PO DAILY Fenofibrate (Fenofibrate Nanocrystallized) 145 Mg Tablet 145 Tab PO DAILY Norvasc (Amlodipine Besylate) 10 Mg Tablet 10 Mg PO DAILY Allopurinol 300 Mg Tablet 1 Tab PO DAILY Dapsone 25 Mg Tablet 25 Mg PO Flomax (Tamsulosin Hcl) 0.4 Mg Cap.er.24h 0.4 Mg PO DAILY Vitals/I & O Vital Sign - Last 24 Hours 08/28/19 08/28/19 08/28/19 08/28/19 16:20 17:48 19:03 19:18 Temp 98.2 98.2 Pulse 82 78 Resp 18 B/P (MAP) 158/76 139/80 (99) Pulse Ox 94 94 O2 Delivery Nasal Cannula Nasal Cannula Nasal Cannula O2 Flow Rate 2.5 2.0 2.0 08/28/19 08/29/19 08/29/19 08/29/19 22:01 02:18 07:00 08:00 Temp 98.2 98.2 97.6 98.2 98.2 97.6 Pulse 78 78 65 Resp 18 18 19 B/P (MAP) 134/72 (92) 107/72 (84) 124/68 (86) Pulse Ox 94 96 93 O2 Delivery Nasal Cannula Nasal Cannula Nasal Cannula Nasal Cannula O2 Flow Rate 2.0 2.0 2.0 2.0 08/29/19 08/29/19 08/29/19 08/29/19 08:17 11:00 12:30 15:00 Temp 97.7 97.7 97.7 97.7 Pulse 65 77 77 74 Resp 19 19 B/P (MAP) 124/68 120/70 (87) 120/70 122/70 (87) Pulse Ox 92 93 O2 Delivery Nasal Cannula Nasal Cannula O2 Flow Rate 2.0 2.0 Intake and Output0 08/28/19 08/28/19 08/29/19 15:00 23:00 07:00 Intake Total 300 ml 0 ml Balance 300 ml 0 ml NANDO ARANA MD Aug 29, 2019 15:54
[2019-08-29 19:58] VITALS: BP 146/80
[2019-08-29 23:25] VITALS: BP 124/69
[2019-08-30] VITALS (15 sets, daily range): BP systolic 115–154; BP diastolic 64–92
[2019-08-30] MEDS: NITROGLYCERIN OINT 1 GM PACKET. TP SCH ×3 (06:00→18:19)
[2019-08-30] MEDS ORDERED: LIDOCAINE 1% PF 2 ML VIAL. ONE (07:38)
[2019-08-30] MEDS ORDERED: IOHEXOL 300 MG/ML 100ML VIAL. ONE ×2 (07:38→09:26)
[2019-08-30] MEDS: amLODIPine BESYLATE 10 MG TABLET PO SCH (08:18)
[2019-08-30] MEDS ORDERED: NITROGLYCERIN 200 MCG/2 ML SYRINGE FOR CATH/VASC LAB. ONE (08:32)
[2019-08-30] MEDS ORDERED: fentaNYL PF VIAL 100 MCG/2 ML VIAL ONE (08:32)
[2019-08-30] MEDS ORDERED: HEPARIN for IV BOLUS 10,000 UNIT/10 ML VIAL. ONE (08:32)
[2019-08-30] MEDS ORDERED: MIDAZOLAM HCL/PF 2 MG/2 ML VIAL. ONE (08:32)
[2019-08-30] MEDS ORDERED: VERAPAMIL 5 MG/2 ML VIAL. ONE (08:32)
[2019-08-30] MEDS ORDERED: BIVALIRUDIN 250 MG VIAL. IV ONE ×2 (09:04→09:15)
[2019-08-30] MEDS ORDERED: IOHEXOL 300 MG/ML 100ML VIAL. IART ONE (09:15)
[2019-08-30] MEDS ORDERED: fentaNYL PF VIAL 100 MCG/2 ML VIAL IV ONE (09:15)
[2019-08-30] MEDS ORDERED: LIDOCAINE 1% PF 2 ML VIAL. INJ ONE (09:15)
[2019-08-30] MEDS ORDERED: MIDAZOLAM HCL/PF 2 MG/2 ML VIAL. IV ONE (09:15)
[2019-08-30] MEDS ORDERED: NITROGLYCERIN 200 MCG/2 ML SYRINGE FOR CATH/VASC LAB. IART ONE (09:15)
[2019-08-30] MEDS ORDERED: VERAPAMIL 5 MG/2 ML VIAL. IART ONE (09:15)
[2019-08-30] MEDS ORDERED: HEPARIN for IV BOLUS 10,000 UNIT/10 ML VIAL. IART ONE (09:15)
[2019-08-30] MEDS ORDERED: TICAGRELOR 90 MG TABLET. ONE (09:30)
[2019-08-30] MEDS ORDERED: NITROGLYCERIN 200 MCG/2 ML SYRINGE FOR CATH/VASC LAB. ICAR ONE (09:30)
[2019-08-30] MEDS ORDERED: ASPIRIN 325 MG TABLET PO ONE (09:30)
[2019-08-30] MEDS ORDERED: TICAGRELOR 90 MG TABLET. PO ONE (09:30)
[2019-08-30] MEDS ORDERED: ASPIRIN 325 MG TABLET ONE (09:30)
[2019-08-30] MEDS ORDERED: IV 1/2 NORMAL SALINE 1,000 ML IV SCH (10:08)
--- NOTE | 2019-08-30 10:08 | PDOC ---
MODERATE SEDATION ASSESSMENT RISKS/ALTERNATIVES Risks/Alternatives Risks and alternatives of this type of sedation and procedure discussed with: RISK/ALTERNATIVES: Patient H & P ON CHART H & P H & P on chart and reviewed for co-morbid conditions and appropriate labs. H&P ON CHART: Yes STATUS PREG STATUS ASSESSED: N/A MEDS/ALLERGIES REVIEWED Meds/Allergies Reviewed Medications and Allergies including time and route of recently administered narcotics and sedatives. MEDS/ALLERGIES REVIEWED: Yes ASA RATING ASA RATING: II AIRWAY ASSESSMENT Airway Assessment Airway patency, oral function limitations, presence of caps, crowns, dentures, partials, and ability to extend neck assessed. AIRWAY ASSESSMENT: Yes MALLAMPATI SCORE MALLAMPATI SCORE: II PRE-SEDATION ASSESSMENT PRE-SEDATION ASSESSMENT: Yes BRAYAN MASSEY MD Aug 30, 2019 10:08
[2019-08-30] MEDS ORDERED: AMIODARONE 150 MG in IV DEXTROSE 5% 100ML 100 ML IV PRN (10:15)
[2019-08-30] MEDS ORDERED: ACETAMINOPHEN 325 MG TABLET. PO PRN (10:15)
[2019-08-30] MEDS ORDERED: fentaNYL PF VIAL 100 MCG/2 ML VIAL IV PRN (10:15)
[2019-08-30] MEDS ORDERED: NITROGLYCERIN SUBLINGUAL 0.4 MG BOTTLE OF 25. SL PRN (10:15)
[2019-08-30] MEDS ORDERED: 0.9 % SODIUM CHLORIDE 10 ML DISP.SYRIN. IV PRN (10:15)
[2019-08-30] MEDS ORDERED: LIDOCAINE 2% 100 MG/5 ML SYRINGE. IV PRN (10:15)
[2019-08-30] MEDS ORDERED: ATROPINE 0.5 MG/5 ML DISP.SYRINGE. IV PRN (10:15)
--- NOTE | 2019-08-30 10:16 | CARD ---
MR#: [id number] Date of Study: 08/30/2019 Ordering Physician: BRAYAN MASSEY, Referring Physician: BRAYAN MASSEY, Tech: NELY DAWSON APPROVED REPORT Technologist: NELY DAWSON Nurse: Gilma Monsivais R.N. Procedure(s) performed: 1. Left heart catheterization, selective coronary angiography and left ventr iculography via right transradial approach 2. Successful PCI/drug eluting stent placement to the left anterior descending artery Flouro Time: 9.0 min Dose: 43.44 Gycm2 Contrast: 158 Omni Sedation Time: 48 min INDICATION The indication(s) include : unstable angina . CSHA Clinical Frailty Scale CSHA Clinical Frailty Scale: Managing Well Heart Failure Heart Failure: No PROCEDURE NARRATIVE After explaining the risks, benefits and alternative options, informed consent was obtained from sarah ent. Patient was brought to the cardiac Thermograph Operator and right wrist was prepped and draped in the usual fashion after confirming a positive modified Flaco's test. Arterial access was obtained in the righ t radial artery and a 6 [place]an sheath was inserted. 6 [place] Candelario catheter was used to perform debbie ective angiography of the left and right coronary arteries. 6 [place] pigtail catheter was used to pe rform left ventriculography. The following findings were noted. FINDINGS 1. Hemodynamics: Left ventricular end-diastolic pressure of 19 mmHg. No pullback gradient across th e aortic valve. 2. Left ventriculography: Normal left ventricle systolic function with ejection fraction estimated at 65%. No significant mitral regurgitation seen. 3. Coronary angiography: a. The left main coronary artery arose from the left sinus of Valsalva, gave rise to the left anteri or descending and left circumflex arteries and did not show any significant stenosis. b. The left anterior descending artery showed 95-99% critical stenosis involving the midsegment. c. The left circumflex artery did not show any significant stenosis. d. The right coronary artery was a large and dominant vessel arising from the right sinus of Valsalv a that did not show any significant stenosis. INTERVENTION The left main coronary artery was engaged with a 6 [place] XB 3.5 guide catheter. The stenosis in the left anterior descending artery was crossed with a 0.014 inch ProcureSafe water guidewire. This was pre dilated with a 2.5 x 15 mm trek balloon following which this was treated with a long 3.0 x 38 mm reso lute mason drug-eluting stent. Follow-up angiography showed resolution of the stenosis to 0% with LEON -3 distal flow. Patient tolerated the procedure well. Hemostasis was achieved using TR band. There we re no immediate complications. LEON Flow LEON Flow (Pre-Intervention): LEON-1 LEON Flow (Post-Intervention): LEON-3 Conclusion 1. Severe single-vessel coronary disease 2. Successful PCI/drug eluting stent placement to the left anterior descending artery 3. Normal left ventricle systolic function with ejection fraction estimated at 65%. Recommendations 1. Aspirin 81 mg daily 2. Ticagrelor 90 mg twice daily 3. Cardiovascular risk factor modification Signed by : Brayan Massey, Electronically Approved : 08/30/2019 10:16:08
[2019-08-30] MEDS: TAMSULOSIN 0.4 MG CAP.ER.24H. PO SCH (10:21)
[2019-08-30] MEDS: ALLOPURINOL 300 MG TABLET. PO SCH (10:21)
[2019-08-30] MEDS ORDERED: TICA90TA PO (10:30)
[2019-08-30] MEDS ORDERED: NITR0.4T24 SL (10:30)
[2019-08-30] MEDS ORDERED: METO25TA4 PO (10:30)
--- NOTE | 2019-08-30 13:42 | PDOC3 ---
Discharge Summary Visit Information Date of Admission: Aug 28, 2019 Date of Discharge: Aug 30, 2019 Admitting Diagnosis Comment: Chest pain rule out ACS Final Diagnosis Problems Medical Problems: (1) Coronary artery disease status post PCI and stent placement in the LAD (2) Essential hypertension (3) Dyslipidemia Status: Acute Brief Hospital Course Allergies Allergies Coded Allergies Type Severity Reaction Last Updated Verified Dlqumed-[id number]-Ltq Reductase Inhibitor Allergy Severe Swelling 03/09/17 Yes Vital Signs Vital Signs Date Time Temp Pulse Resp B/P (MAP) Pulse Ox O2 Delivery O2 Flow Rate FiO2 08/30/19 12:00 66 130/85 (100) 94 Room Air 08/30/19 10:43 98.1 18 98.1 08/30/19 09:48 2.0 Lab Results Laboratory Tests Test 08/28/19 19:00 08/29/19 04:12 Troponin I Quantitative < 0.017 ng/mL (0.000-0.055) White Blood Count 5.0 x10^3/uL (4.0-11.0) Red Blood Count 4.05 x10^6/uL (4.30-5.70) Hemoglobin 13.5 g/dL (13.0-17.5) Hematocrit 39.8 % (39.0-53.0) Mean Corpuscular Volume 98 fL (79-100) Mean Corpuscular Hemoglobin 33 pg (25-35) Mean Corpuscular Hemoglobin Concent 34 g/dL (31-37) Red Cell Distribution Width 13.6 % (11.5-14.5) Platelet Count 251 x10^3/uL (140-400) Neutrophils (%) (Auto) 72 % (31-73) Lymphocytes (%) (Auto) 17 % (24-48) Monocytes (%) (Auto) 9 % (0-9) Eosinophils (%) (Auto) 2 % (0-3) Basophils (%) (Auto) 1 % (0-3) Neutrophils # (Auto) 3.6 x10^3/uL (1.8-7.7) Lymphocytes # (Auto) 0.8 x10^3/uL (1.0-4.8) Monocytes # (Auto) 0.4 x10^3/uL (0.0-1.1) Eosinophils # (Auto) 0.1 x10^3/uL (0.0-0.7) Basophils # (Auto) 0.0 x10^3/uL (0.0-0.2) Sodium Level 140 mmol/L (136-145) Potassium Level 3.6 mmol/L (3.5-5.1) Chloride Level 103 mmol/L (98-107) Carbon Dioxide Level 26 mmol/L (21-32) Anion Gap 11 (6-14) Blood Urea Nitrogen 18 mg/dL (8-26) Creatinine 1.1 mg/dL (0.7-1.3) Estimated GFR (Cockcroft-Gault) 67.8 Glucose Level 102 mg/dL (70-99) Calcium Level 8.9 mg/dL (8.5-10.1) Brief Hospital Course Mr. Mccall is a 64 old male who presented with chronic chest discomfort quite concerning for unstable angina, he was ruled out with serial cardiac enzymes and he underwent a cardiac catheterization on th eday of discharge as per Dr Stroud, he tolerated the procedure well and feels much better. Signs and symptoms of alarm were discussed prior to the discharge and when to seek medical attention if his symptoms would recur. He was in good spirits to be discharged home he will follow up with cardiology in the outpatient setting. No acute events during his short hospital stay Physical exam CVS s1s2 regular rhythm with no murmurs Lungs clear to auscultation with good inspiratory effort Neuro cn 2 to 12 intact no focal deficits. Assessment Assessment PATIENT: RORY MCCALL BACCOUNT: [id number] : 1955 LOCATION: ER AGE: 64 SEX: M EXAM STATUS: PRE ER ORD. PHYSICIAN: BARBARA COHEN DO REASON: left sided CP radiating down left arm x1 day PROCEDURE: CHEST AP ONLY EXAM: Chest, single view. HISTORY: Chest pain. COMPARISON: None. FINDINGS: A frontal view of the chest is obtained. There is no infiltrate, pleural effusion or pneumothorax. The heart is normal in size. There is a healed left fourth rib fracture. IMPRESSION: No acute pulmonary finding. Electronically signed by: Serina Churchill MD (08/28/2019 12:22 PM) [facility] Technologist: NELY DAWSON Nurse: Gilma Monsivais R.N. Procedure(s) performed: 1. Left heart catheterization, selective coronary angiography and left ventriculography via right transradial approach 2. Successful PCI/drug eluting stent placement to the left anterior descending artery Flouro Time: 9.0 min Dose: 43.44 Gycm2 Contrast: 158 Omni Sedation Time: 48 min INDICATION The indication(s) include : unstable angina . CSHA Clinical Frailty Scale CS Clinical Frailty Scale: Managing Well Heart Failure Heart Failure: No PROCEDURE NARRATIVE After explaining the risks, benefits and alternative options, informed consent was obtained from patient. Patient was brought to the cardiac Endoscopy Specialty Technician and right wrist was prepped and draped in the usual fashion after confirming a positive modified Flaco's test. Arterial access was obtained in the right radial artery and a 6 Nigerian sheath was inserted. 6 [place] Candelario catheter was used to perform selective angiography of the left and right coronary arteries. 6 [place] pigtail catheter was used to perform left ventriculography. The following findings were noted. FINDINGS 1. Hemodynamics: Left ventricular end-diastolic pressure of 19 mmHg. No pullback gradient across the aortic valve. 2. Left ventriculography: Normal left ventricle systolic function with ejection fraction estimated at 65%. No significant mitral regurgitation seen. 3. Coronary angiography: a. The left main coronary artery arose from the left sinus of Valsalva, gave rise to the left anterior descending and left circumflex arteries and did not show any significant stenosis. b. The left anterior descending artery showed 95-99% critical stenosis involving the midsegment. c. The left circumflex artery did not show any significant stenosis. d. The right coronary artery was a large and dominant vessel arising from the right sinus of Valsalva that did not show any significant stenosis. INTERVENTION The left main coronary artery was engaged with a 6 Nigerian XB 3.5 guide catheter. The stenosis in the left anterior descending artery was crossed with a 0.014 inch Fluency water guidewire. This was predilated with a 2.5 x 15 mm trek balloon following which this was treated with a long 3.0 x 38 mm resolute mason drug-eluting stent. Follow-up angiography showed resolution of the stenosis to 0% with LEON-3 distal flow. Patient tolerated the procedure well. Hemostasis was achieved using TR band. There were no immediate complications. LEON Flow LEON Flow (Pre-Intervention): LEON-1 LEON Flow (Post-Intervention): LEON-3 Conclusion 1. Severe single-vessel coronary disease 2. Successful PCI/drug eluting stent placement to the left anterior descending artery 3. Normal left ventricle systolic function with ejection fraction estimated at 65%. Recommendations 1. Aspirin 81 mg daily 2. Ticagrelor 90 mg twice daily 3. Cardiovascular risk factor modification Signed by : Quintin Stroud, Discharge Information Condition at Discharge: Improved Follow Up: Weeks Disposition/Orders: D/C to Home Scheduled Allopurinol (Allopurinol) 300 Mg Tablet, 1 TAB PO DAILY, #30 Ref 5 (Reported) Entered as Reported by: ANJU ALMARAZ on 03/09/17958 Last Action: Continued on 08/28/191426 by NANDO ARANA MD Aspirin (Aspir-Low) 81 Mg Tablet.dr, 1 TAB PO DAILY for acs, #30 Ref 3 (Reported) Entered as Reported by: RADHA LEONG on 08/28/191601 Last Taken: Unknown Dose on 08/28/19 Last Action: New Order on 08/28/191601 by RADHA LEONG Fenofibrate Nanocrystallized (Fenofibrate) 145 Mg Tablet, 145 TAB PO DAILY, #30 Ref 5 (Reported) Entered as Reported by: ANJU ALMARAZ on 03/09/17958 Last Action: HELD on 08/28/191425 by NANDO ARANA MD Metoprolol Tartrate (Metoprolol Tartrate) 25 Mg Tablet, 25 MG PO BID for BP for 30 Days, #60 Prescribed by: NANDO ARANA MD on 08/30/19 1030 [place]-3 Acid Ethyl Esters (Lovaza) 1 Gm Capsule, 2 GM PO BID for acs, (Reported) Entered as Reported by: RADHA LEONG on 08/28/191601 Last Action: New Order on 08/28/191601 by RADHA LEONG Tamsulosin Hcl (Flomax) 0.4 Mg Cap.er.24h, 0.4 MG PO DAILY, (Reported) Entered as Reported by: ANJU ALMARAZ on 03/09/17958 Last Action: Continued on 08/28/191426 by NANDO ARANA MD Ticagrelor (Brilinta) 90 Mg Tablet, 90 MG PO BID for antiplatelet for 30 Days, #60 Prescribed by: NANDO ARANA MD on 08/30/19 1030 Scheduled PRN Nitroglycerin (Nitrostat) 0.4 Mg Tab.subl, 0.4 MG SL PRN Q5MIN PRN for CHEST PAIN for 30 Days, #25 Prescribed by: NANDO ARANA MD on 08/30/19 1030 Miscellaneous Medications Dapsone (Dapsone) 25 Mg Tablet, 25 MG PO, (Reported) Entered as Reported by: ANJU ALMARAZ on 03/09/17958 Last Action: HELD on 08/28/191425 by NANDO ARANA MD Discontinued Medications Amlodipine Besylate (Norvasc) 10 Mg Tablet, 10 MG PO DAILY, (Reported) Entered as Reported by: ANJU ALMARAZ on 03/09/17958 Last Action: Continued on 08/28/191426 by MD YASMEEN PATEL HECTOR M MD Aug 30, 2019 13:42
--- NOTE | 2019-08-30 13:48 | NUR ---
SW following. Discussed with RN, pt from home, heart cath today. RN advised no SW needs and anticipates pt should discharge home later today with self care. SW will continue to follow.
--- NOTE | 2019-08-30 17:27 | NUR ---
Patient still having some chest pain. Patient states it feels like a pressure in the middle of his chest rating it a 4/10. Patient will stay overnight, & discharge tomorrow if feeling better.
[2019-08-30] MEDS: METOPROLOL TART IMMED RELEASE 25 MG TABLET. PO SCH (21:44)
[2019-08-31] MEDS: NITROGLYCERIN OINT 1 GM PACKET. TP SCH ×3 (01:10→12:00)
[2019-08-31 03:10] VITALS: BP 126/79
[2019-08-31 07:18] VITALS: BP 140/79
[2019-08-31] MEDS ORDERED: ASPIRIN ENTERIC COATED 81 MG TABLET.DR. PO SCH (08:00)
[2019-08-31] MEDS ORDERED: TICAGRELOR 90 MG TABLET. PO SCH (09:00)
--- NOTE | 2019-08-31 09:11 | PDOC ---
BLANKA CHONG WOUND CARE PHYSICIAN 08/31/19 0911: CARDIO Progress Notes Date and Time Date of Service 08/31/2019 Time of Evaluation 0930 Subjective Subjective: No Chest Pain, No shortness of breath, No Palpitations Vitals Vitals Vital Signs Date Time Temp Pulse Resp B/P (MAP) Pulse Ox O2 Delivery O2 Flow Rate FiO2 08/31/19 07:18 98.4 67 16 140/79 (99) 96 Room Air 98.4 08/30/19 09:48 2.0 Weight Weight [ ] Input and Output Intake and Output Intake and Output 08/31/19 07:00 Intake Total 780 ml Balance 780 ml Intake Oral 780 ml # Voids 3 # Bowel Movements 1 Physical Exam HEENT: Neck Supple W Full Motion Chest: Symmetric LUNGS: Clear to Auscultation Heart: S1S2, RRR (SR) Abdomen: Soft N/T Extremities: No Edema, No Calf Tenderness Neurology: alert, oriented, follow commands Other Exams right wrist arteriotomy site intact, no erythema, or swelling. Neurovascular status to right hand intact Assessment Assessment 1. CP: UA features- S/P PCI/LAMONT to LAD. 1V disease, EF and LV systolic motion normal. 2. HTN: controlled 3. HLP: statin intolerant Recommendations 1. ASA/brilinta. Continue metoprolol. 2. Cardiac rehab 3. Continue home fibrate/fish oil for now. Check lipids and will consider for [id number] as an outpt. 4. Follow up with Dr. Stroud on October 12Friday 2:15PM MELBA ADAMS MD 08/31/19 1252: CARDIO Progress Notes Plan Plan Pt. seen and examined. Agree with above FLAVORER note. Ok to DC later today. Echo wnl. Thanks BLANKA CHONG APRN Aug 31, 2019 09:11 MELBA ADAMS MD Aug 31, 2019 12:52
[2019-08-31] MEDS: ALLOPURINOL 300 MG TABLET. PO SCH (09:25)
[2019-08-31] MEDS: METOPROLOL TART IMMED RELEASE 25 MG TABLET. PO SCH (09:25)
[2019-08-31] MEDS: TAMSULOSIN 0.4 MG CAP.ER.24H. PO SCH (09:26)
[2019-08-31 09:40] LABS: CHOLESTEROL/HDL RATIO 4.6
[2019-08-31 10:30] VITALS: BP 156/76
--- NOTE | 2019-08-31 11:29 | PDOC3 ---
Discharge Summary Visit Information Date of Admission: Aug 28, 2019 Date of Discharge: Aug 31, 2019 Admitting Diagnosis Comment: chest pain rule out ACS Final Diagnosis Problems Medical Problems: (1) Coronary artery disease status post PCI and stent placement in the LAD (2) Essential hypertension (3) Dyslipidemia Status: Acute Brief Hospital Course Allergies Allergies Coded Allergies Type Severity Reaction Last Updated Verified Ffpwvoj-Tlz-Mmw Reductase Inhibitor Allergy Severe Swelling 03/09/17 Yes Vital Signs Vital Signs Date Time Temp Pulse Resp B/P (MAP) Pulse Ox O2 Delivery O2 Flow Rate FiO2 08/31/19 10:30 98.8 70 20 156/76 (102) 97 Room Air 98.8 08/31/19 09:18 2.5 Brief Hospital Course Mr. Mccall is a 64 old male who presented with chronic chest discomfort quite concerning for unstable angina, he was ruled out with serial cardiac enzymes and he underwent a cardiac catheterization on th eday of discharge as per Dr Stroud, he tolerated the procedure well and feels much better. Signs and symptoms of alarm were discussed prior to the discharge and when to seek medical attention if his symptoms would recur. He was in good spirits to be discharged home he will follow up with cardiology in the outpatient setting. No acute events during his short hospital stay Physical exam CVS s1s2 regular rhythm with no murmurs Lungs clear to auscultation with good inspiratory effort Neuro cn 2 to 12 intact no focal deficits. Assessment Assessment PATIENT: RORY MCCALL BACCOUNT: [id number] : 1955 LOCATION: ER AGE: 64 SEX: M EXAM STATUS: PRE ER ORD. PHYSICIAN: BARBARA COHEN DO REASON: left sided CP radiating down left arm x1 day PROCEDURE: CHEST AP ONLY EXAM: Chest, single view. HISTORY: Chest pain. COMPARISON: None. FINDINGS: A frontal view of the chest is obtained. There is no infiltrate, pleural effusion or pneumothorax. The heart is normal in size. There is a healed left fourth rib fracture. IMPRESSION: No acute pulmonary finding. Electronically signed by: Serina Churchill MD (08/28/2019 12:22 PM) [facility] Technologist: NELY DAWSON Nurse: Gilma Monsivais R.N. Procedure(s) performed: 1. Left heart catheterization, selective coronary angiography and left ventriculography via right transradial approach 2. Successful PCI/drug eluting stent placement to the left anterior descending artery Flouro Time: 9.0 min Dose: 43.44 Gycm2 Contrast: 158 Omni Sedation Time: 48 min INDICATION The indication(s) include : unstable angina . CSHA Clinical Frailty Scale CSHA Clinical Frailty Scale: Managing Well Heart Failure Heart Failure: No PROCEDURE NARRATIVE After explaining the risks, benefits and alternative options, informed consent was obtained from patient. Patient was brought to the cardiac Yard Attendant and right wrist was prepped and draped in the usual fashion after confirming a positive modified Flaco's test. Arterial access was obtained in the right ra dial artery and a 6 Canadian sheath was inserted. 6 Canadian Candelario catheter was used to perform selective angiography of the left and right coronary arteries. 6 Canadian pigtail catheter was used to perform left ventriculography. The following findings were noted. FINDINGS 1. Hemodynamics: Left ventricular end-diastolic pressure of 19 mmHg. No pullback gradient across the aortic valve. 2. Left ventriculography: Normal left ventricle systolic function with ejection fraction estimated at 65%. No significant mitral regurgitation seen. 3. Coronary angiography: a. The left main coronary artery arose from the left sinus of Valsalva, gave rise to the left anterior descending and left circumflex arteries and did not show any significant stenosis. b. The left anterior descending artery showed 95-99% critical stenosis involving the midsegment. c. The left circumflex artery did not show any significant stenosis. d. The right coronary artery was a large and dominant vessel arising from the right sinus of Valsalva that did not show any significant stenosis. INTERVENTION The left main coronary artery was engaged with a 6 Canadian XB 3.5 guide catheter. The stenosis in the left anterior descending artery was crossed with a 0.014 inch NJVC Pro water guidewire. This was predilated with a 2.5 x 15 mm trek balloon following which this was treated with a long 3.0 x 38 mm resolute mason drug-eluting stent. Follow-up angiography showed resolution of the stenosis to 0% with LEON-3 distal flow. Patient tolerated the procedure well. Hemostasis was achieved using TR band. There were no immediate complications. LEON Flow LEON Flow (Pre-Intervention): LEON-1 LEON Flow (Post-Intervention): LEON-3 Conclusion 1. Severe single-vessel coronary disease 2. Successful PCI/drug eluting stent placement to the left anterior descending artery 3. Normal left ventricle systolic function with ejection fraction estimated at 65%. Recommendations 1. Aspirin 81 mg daily 2. Ticagrelor 90 mg twice daily 3. Cardiovascular risk factor modification Signed by : Quintin Stroud, Discharge Information Condition at Discharge: Improved Follow Up: Weeks Disposition/Orders: D/C to Home Scheduled Allopurinol (Allopurinol) 300 Mg Tablet, 1 TAB PO DAILY, #30 Ref 5 (Reported) Entered as Reported by: ANJU ALMARAZ on 03/09/17958 Last Action: Continued on 08/28/191426 by NANDO ARANA MD Aspirin (Aspir-Low) 81 Mg Tablet.dr, 1 TAB PO DAILY for acs, #30 Ref 3 (Reported) Entered as Reported by: RADHA LEONG on 08/28/191601 Last Taken: Unknown Dose on 08/28/19 Last Action: New Order on 08/28/191601 by RADHA LEONG Fenofibrate Nanocrystallized (Fenofibrate) 145 Mg Tablet, 145 TAB PO DAILY, #30 Ref 5 (Reported) Entered as Reported by: ANJU ALMARAZ on 03/09/17958 Last Action: HELD on 08/28/191425 by NANDO ARANA MD Metoprolol Tartrate (Metoprolol Tartrate) 25 Mg Tablet, 25 MG PO BID for BP for 30 Days, #60 Prescribed by: NANDO ARANA MD on 08/30/19 1030 Sumpter-3 Acid Ethyl Esters (Lovaza) 1 Gm Capsule, 2 GM PO BID for acs, (Reported) Entered as Reported by: RADHA LEONG on 08/28/191601 Last Action: New Order on 08/28/191601 by RADHA LEONG Tamsulosin Hcl (Flomax) 0.4 Mg Cap.er.24h, 0.4 MG PO DAILY, (Reported) Entered as Reported by: ANJU ALMARAZ on 03/09/17958 Last Action: Continued on 08/28/191426 by NANDO ARANA MD Ticagrelor (Brilinta) 90 Mg Tablet, 90 MG PO BID for antiplatelet for 30 Days, #60 Prescribed by: NANDO ARANA MD on 08/30/19 1030 Scheduled PRN Nitroglycerin (Nitrostat) 0.4 Mg Tab.subl, 0.4 MG SL PRN Q5MIN PRN for CHEST PAIN for 30 Days, #25 Prescribed by: NANDO ARANA MD on 08/30/19 1030 Miscellaneous Medications Dapsone (Dapsone) 25 Mg Tablet, 25 MG PO, (Reported) Entered as Reported by: ANJU ALMARAZ on 03/09/17958 Last Action: HELD on 08/28/191425 by NANDO ARANA MD Discontinued Medications Amlodipine Besylate (Norvasc) 10 Mg Tablet, 10 MG PO DAILY, (Reported) Entered as Reported by: ANJU ALMARAZ on 03/09/17958 Last Action: Continued on 08/28/191426 by MD YASMEEN PATEL HECTOR M MD Aug 31, 2019 11:29
--- NOTE | 2019-08-31 12:31 | CARD ---
MR#: [id number] Date of Study: 08/31/2019 Ordering Physician: MELBA ADAMS, Referring Physician: MELBA ADAMS, Tech: Nubia Bland [facility] APPROVED REPORT EXAM: Two-dimensional and M-mode echocardiogram with Doppler and color Doppler. Other Information Quality : Good INDICATION Cardiac Disease: CAD Unstable Angina, S/P Stent LAD 2D DIMENSIONS RVDd2.7 (2.9-3.5cm)Left Atrium(2D)3.5 (1.6-4.0cm) IVSd1.0 (0.7-1.1cm)Aortic Root(2D)3.1 (2.0-3.7cm) LVDd4.3 (3.9-5.9cm)LVOT Diameter2.1 (1.8-2.4cm) PWd1.1 (0.7-1.1cm)LVDs2.9 (2.5-4.0cm) FS (%) 32.4 %SV49.3 ml LVEF(%)60.0 (>50%) Aortic Valve AoV Peak Eric.111.5cm/sAoV VTI19.3cm AO Peak GR.5.0mmHgLVOT Peak Eric.97.7cm/s AO Mean GR.3mmHgAVA (VMAX)3.07cm2 TAMERA (VTI)3.50cm2 Mitral Valve MV E Vxklhivv50.1cm/sMV DECEL SWGB471qm MV A Gprncnwi76.2cm/sE/A Ratio1.5 Tricuspid Valve TR P. Xaysrenf642go/sRAP DCCBRDOI7hzGg TR Peak Gr.85hgUqSVBL17tyGq Pulmonary Vein S1 Uvjlzyng02.3cm/sD2 Wuwnqlqb21.5cm/s LEFT VENTRICLE The left ventricle is normal size. There is normal left ventricular wall thickness. The left ventricu lar systolic function is normal and the ejection fraction is within normal range. The Ejection Fracti on is 55-60%. There is normal LV segmental wall motion. Transmitral Doppler flow pattern is Grade I-a bnormal relaxation pattern. RIGHT VENTRICLE The right ventricle is normal size. The right ventricular systolic function is normal. ATRIA The left atrium is moderately dilated. The right atrium size is normal. The interatrial septum is int act with no evidence for an atrial septal defect or patent foramen ovale as noted on 2-D or Doppler i maging. AORTIC VALVE The aortic valve is moderately thickened but opens well. Doppler and Color Flow revealed no significa nt aortic regurgitation. There is no significant aortic valvular stenosis. MITRAL VALVE The mitral valve is calcified but opens well. There is no evidence of mitral valve prolapse. There is no mitral valve stenosis. Doppler and Color-flow revealed trace to mild mitral regurgitation. TRICUSPID VALVE The tricuspid valve is normal in structure and function. Doppler and Color Flow revealed physiologica l tricuspid regurgitation. The PA pressure was estimated at 17 mmHg. There is no tricuspid valve sten osis. PULMONIC VALVE The pulmonic valve is not well visualized. Doppler and Color Flow revealed mild pulmonic valvular reg urgitation. There is no pulmonic valvular stenosis. GREAT VESSELS The aortic root is normal in size. The ascending aorta is normal in size. The IVC is normal in size a nd collapses >50% with inspiration. PERICARDIAL EFFUSION There is no evidence of significant pericardial effusion. Critical Notification Critical Value: No <Conclusion> The left ventricular systolic function is normal and the ejection fraction is within normal range. Th e Ejection Fraction is 55-60%. There is normal LV segmental wall motion. Signed by : Melba Adams, Electronically Approved : 08/31/2019 12:31:01
--- NOTE | 2019-08-31 14:43 | NUR ---
Discharge Note: RORY MCCALL [address] [place] [address] Discharge instructions and discharge home medications reviewed with Patient and a copy given. All questions have been answered and understanding verbalized. The following instructions and handouts were given: discharge instructions, prescriptions, follow up, CP info, post cath info, cardiac diet info, medication info. Discontinued lines and drains: Peripheral IV intact. Patient discharged to Home or Self Care with Self via Ambulated at 1443.
== END 2019-08-31 14:43 | disposition home or self-care (01) | DRG 247 ==
LOC: ER 11:48 → 2 NORTH 13:00
PROVIDERS: ADMIT Internal Medicine; ATTEND Internal Medicine
PROC: 027034Z Dilation of Coronary Artery, One Artery with Drug-eluting Intraluminal Device, Percutaneous Approach (ICD-10-PCS; principal; 2019-08-30)
PROC: 4A023N7 Measurement of Cardiac Sampling and Pressure, Left Heart, Percutaneous Approach (ICD-10-PCS; 2019-08-30)
PROC: B2111ZZ Fluoroscopy of Multiple Coronary Arteries using Low Osmolar Contrast (ICD-10-PCS; 2019-08-30)
PROC: B2151ZZ Fluoroscopy of Left Heart using Low Osmolar Contrast (ICD-10-PCS; 2019-08-30)
DX: I25.10 Atherosclerotic heart disease of native coronary artery without angina pectoris (principal); I10 Essential (primary) hypertension; E78.00 Pure hypercholesterolemia, unspecified; E78.5 Hyperlipidemia, unspecified; M10.9 Gout, unspecified; N40.0 Benign prostatic hyperplasia without lower urinary tract symptoms; Z82.49 Family history of ischemic heart disease and other diseases of the circulatory system; Z88.8 Allergy status to other drugs, medicaments and biological substances; Z95.5 Presence of coronary angioplasty implant and graft; Z79.899 Other long term (current) drug therapy
CPT/HCPCS: 36415; 71045; 80048; 80053; 80061; 83880; 84484; 85025; 92928; 93005; 93306; 93458; 94640; 94760; 96372; 99152; 99153; 99285; C1725; C1769; C1874; C1887; C1892; J0583; J1644; J1650; J2250; J2270; J3010; J3490; J7030; Q9967; G0378; J7613